=== PATIENT | female | born 1935 | race African-American/Black ===

== ENCOUNTER 2016-06-04 17:03 | Inpatient (IN) ==
[2016-06-04] MEDS ORDERED: ONDANSETRON 4 MG/2 ML VIAL IV STA (18:16)
[2016-06-04] MEDS ORDERED: SODIUM CHLORIDE 0.9% 500 ML IV STA (18:16)
[2016-06-04] MEDS ORDERED: PANTOPRAZOLE 40 MG VIAL IV STA (18:16)
--- NOTE | 2016-06-04 18:16 | Emergency Department Note ---
Brian Dixon Brittany, am scribing for, and in the presence of, Yao Payne MD 18:15. Kerry Dixon Charles R, MD, personally performed the services described in this documentation, ascribed by Lela Torres in my presence, and it is both accurate and complete 816 . Arrival - Arrival Chief Complaint: GI Bleed/Rectal Stated Complaint: bloody stool,weakness in knees ED Nursing Triage Note: Pt c/o bright red bloody diarrhea with weakness. Denies abd pain. Onset today. Mode of Arrival: Ambulatory Limitations: No Limitations Source: Patient, Family, RN Notes Reviewed Time Seen by Provider: 06/04/16 17:58 - History of Present Illness HPI Narrative: Patient is a 80 y/o black female presenting to the ED accompanied by daughter with c/o hematochezia with an onset of 4 hours [employer]. 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 Patient's daughter reports that patient called her at 1400 today informing her that she'd had some diarrhea with bright red blood. She then notes that patient called her again at 1600 about a second bowel movement like this as well. Daughter reports that after their arrival here in the ED patient had another two bloody diarrhea movements. She notes that patient has also had an increase in weakness. Patient is on Ecotrin ASA. Patient denies having any abdominal pain, nausea, or vomiting with this. She is a patient of Dr. Chiquis Domínguez. No other complaint/pain in the ED at this time. Onset (ago): hour(s) (4) Consistency: constant Allergies/Adverse Reactions: Allergies Allergy/AdvReac Type Severity Reaction Status Date / Time No Known Allergies Allergy Verified 04/11/15 07:14 Home Medications: Home Medications Medication Instructions Recorded Confirmed Type Allopurinol 300 mg PO DAILY 04/10/15 06/04/16 History Amlodipine Besylate 5 mg PO DAILY 04/10/15 06/04/16 History Fenofibrate [Tricor] 145 mg PO DAILY 04/10/15 06/04/16 History Metoprolol Succinate 100 mg PO DAILY 06/04/16 06/04/16 History Pravastatin [Pravachol] 20 mg PO BEDTIME 06/04/16 06/04/16 History Review of System - Review of System 12 point system: reviewed and no additional remarkable complaints except as stated - Review of System Gastrointestinal: Present: as per HPI, diarrhea, hematochezia. Absent: abdominal pain, nausea, vomiting Medical,Surgical,& Family Hx - Medical History Cardio: History of: Hypertension Neurology: History of: TIA HEENT: History of: Eye Problem (Cataract), Dental Problems (Dentures) Endocrine: History of: Dyslipidemia Rheumatology: History of;: Gout Respiratory: Comment Only: Respiratory Problems (Flu Vac this season/Pnem Vac current) Hematology: No history of: Blood Transfusion Reaction (No Transfusions) Other: No history of: Anesthesia Reactions, Cancer - Surgical History HEENT Surgeries: Surgical HX of: Eye Surgery (04/11/15 Sched for Cataract Lt) Abdominal Surgeries: Surgical HX of: Abdominal Surgery Reproductive Surgeries: Surgical HX of;: Hysterectomy - Social History Smoking Status: Never smoker Exam Vital Signs: Vital Signs Temperature 96.8 F L 06/04/16 17:32 Pulse Rate 53 L 06/04/16 17:32 Respiratory Rate 16 06/04/16 17:32 Blood Pressure 126/68 06/04/16 17:32 O2 Sat by Pulse Oximetry 99 06/04/16 17:21 - General General appearance: alert, in no apparent distress - Head Head exam: Present: atraumatic, normocephalic, normal inspection - Eye Eye exam: Present: normal appearance, PERRL, EOMI - ENT ENT exam: Present: normal exam, normal oropharynx - Neck Neck exam: Present: normal inspection, full ROM, trachea midline - Chest Chest inspection: Present: normal inspection, symmetric chest wall rise - Respiratory Respiratory exam: Present: normal lung sounds bilaterally. Absent: rales, rhonchi, wheezes - Cardiovascular Cardiovascular exam: Present: regular rate, normal rhythm, normal heart sounds. Absent: murmur, rubs, gallop - Abdominal Exam Abdominal exam: Present: soft, normal bowel sounds. Absent: distention, tenderness - Rectal Exam Rectal exam: Present: heme (+) stool (grossly heme pos) - Extremities Exam Extremities exam: Present: normal inspection - Back Exam Back exam: Present: normal inspection - Neurological Exam Neurological exam: Present: alert, oriented X3, CN II-XII intact. Absent: motor sensory deficit - Psychiatric Psychiatric exam: Present: normal affect - Skin Skin exam: Present: warm, dry Course - Consultations Consultation #1: Dr. Bon Torres will admit for Dr. Chiquis Domínguez. She has a mass in her left upper quadrant we will do a CT scan in the morning with IV and oral contrast and consult GI Time: 19:08 Results - Labs CBC & BMP: 06/04/16 18:02 06/04/16 18:02 Lab Results: I have reviewed the patients labs Labs: Laboratory Tests 06/04/16 18:02 WBC 6.6 RBC 3.93 Hgb 11.0 L Hct 33.7 L MCV 85.8 L MCH 28 MCHC 32.6 RDW 15.8 Plt Count 253 MPV 11.9 Neut % (Auto) 65.7 Lymph % (Auto) 22.2 [place] % (Auto) 8.3 Eos % (Auto) 2.4 Baso % (Auto) 0.6 Neut # (Auto) 4.3 Lymph # (Auto) 1.5 [place] # (Auto) 0.6 Eos # (Auto) 0.2 Baso # (Auto) 0.0 Immature Gran % 0.8 Nucleated RBC % 0.0 Immature Gran # 0.05 Nucleated RBCs # 0.00 Laboratory Tests 06/04/16 06/04/16 18:02 18:02 INR 1.1 PT Patient/Control Mix 11.8 Sodium 142 Potassium 4.0 Chloride 109 H Carbon Dioxide 23 Anion Gap 14.0 BUN 34 H Creatinine 1.40 H GFR Calculation 46 BUN/Creatinine Ratio 24.00 H Glucose 107 H Calculated Osmolality 290.1 Calcium 8.4 L Magnesium 1.9 Total Bilirubin < 0.39 AST 16 ALT 17 Alkaline Phosphatase 60 Troponin I < 0.015 Total Protein 5.7 L Albumin 3.2 L Globulin 2.5 Albumin/Globulin Ratio 1.2 - Diagnostic Findings Procedure: Abdominal x-ray: report reviewed by me (Mass lesion involving the left upper abdomen measuring up to 12.6 cm.), Chest x-ray: report reviewed by me (1. Cardiomegaly without decompensation. 2. ASVD.) Disposition Clinical Impression: Lower gastrointestinal hemorrhage, Abdominal mass Case discussed with: patient, patient's family Disposition: Still a Patient Condition: Stable Time of Disposition: 19:08
[2016-06-04] MEDS ORDERED: PANTOPRAZOLE 40 MG VIAL IV ONE (18:20)
[2016-06-04] MEDS ORDERED: ONDANSETRON 4 MG/2 ML VIAL ONE (18:20)
[2016-06-04 18:31] LABS: Basophils % 0.6 % (0.0-0.8); Eosinophils # 0.2 10*3/uL (0.0-0.87); Eosinophils % 2.4 % (0.00-10.9); Hematocrit 33.7 VOL% (35.7-47.0); Immature Granulocytes % 0.8 %; Immature Granulocytes Absolute 0.05 #; Lymphocytes # 1.5 10*3/uL (1.4-4.0); Lymphocytes % 22.2 % (21.3-54.2); Mean Corpuscular HGB Conc 32.6 GM/DL (32-36); Mean Corpuscular Hemoglobin 28 PG (27-34); Mean Corpuscular Volume 85.8 FL (87-102); Mean Platelet Volume 11.9 FL (9.6-12.0); Monocytes # 0.6 10*3/uL (0.11-0.8); Monocytes % 8.3 % (1.7-12.7); Neutrophils # 4.3 10*3/uL (1.4-7.4); Neutrophils % 65.7 % (38.7-73.9); Platelet Count 253 T/CUMM (130-400); Red Blood Count 3.93 MC/CUMM (3.8-5.5); Red Cell Distribution Width 15.8 % (9.3-17.3); White Blood Count 6.6 T/CUMM (4-12)
[2016-06-04 18:38] LABS: INR 1.1; PT Patient Result 11.8 SECS
[2016-06-04 18:52] LABS: Alanine Aminotransferase 17 U/L (13-56); Albumin 3.2 G/DL (3.4-5.0); Alkaline Phosphatase 60 U/L (45-117); Aspartate Amino Transferase 16 U/L (0-37); Bilirubin,Total < 0.39 MG/DL (0.2-1.0); Blood Urea Nitrogen 34 MG/DL (7-18); Calcium 8.4 MG/DL (8.5-10.1); Glucose 107 MG/DL (74-106); Magnesium 1.9 MG/DL (1.8-2.4); Osmolality,Calculated 290.1 MOS/KG (273-304); Sodium 142 MMOL/L (136-145); Total Protein 5.7 G/DL (6.4-8.3); Troponin I Only < 0.015 NG/ML (0.00-0.045)
--- NOTE | 2016-06-04 18:58 | XRay Report ---
Exam: XR chest 1V, Date: 06/04/2016 6:16 PM Indication: Shortness of breath Comparison: None Technical: Expiratory PA Findings: Cardiomegaly is present. There is mild elevation right hemidiaphragm. ASVD is present. External cardiac leads are present. No obvious consolidating infiltrate or effusion with a few calcified granuloma change in the perihilar regions Impression: 1. Cardiomegaly without decompensation. 2. ASVD. Exam: , XR abdomen 2V Date: 06/04/2016 6:16 PM Indication: Abdominal pain Comparison: None Findings: The liver shadow is unremarkable. The spleen is not well seen. The renal shadows are obscured. Nonspecific bowel gas pattern in the right colon. There is a 12.6 x 10.4 cm ovoid density in the left abdomen. Multiple phleboliths present true pelvis. Impression: 1. Mass lesion involving the left upper abdomen measuring up to [address] imaging or ultrasound imaging recommended for further evaluation PROCEDURE INTERPRETED AT [facility] DEPARTMENT OF RADIOLOGY Final Report Signed by: Dr. Dieudonne Dockery
[2016-06-04] MEDS ORDERED: LACTULOSE 20 GM/30 ML UDCUP PO PRN (21:12)
[2016-06-04] MEDS ORDERED: MORPHINE 2 MG/1 ML SYRINGE IV PRN (21:12)
[2016-06-04] MEDS ORDERED: ONDANSETRON 4 MG/2 ML VIAL IV PRN (21:12)
[2016-06-04] MEDS ORDERED: ACETAMINOPHEN 325 MG TABLET PO PRN (21:12)
[2016-06-04 21:52] LABS: Basophils % 0.4 % (0.0-0.8); Eosinophils # 0.1 10*3/uL (0.0-0.87); Eosinophils % 1.3 % (0.00-10.9); Hematocrit 33.2 VOL% (35.7-47.0); Hemoglobin 10.9 GM/DL (12.0-16.0); Immature Granulocytes Absolute 0.08 #; Lymphocytes # 1.5 10*3/uL (1.4-4.0); Lymphocytes % 19.5 % (21.3-54.2); Mean Corpuscular HGB Conc 32.8 GM/DL (32-36); Mean Corpuscular Hemoglobin 28 PG (27-34); Mean Corpuscular Volume 85.8 FL (87-102); Mean Platelet Volume 11.3 FL (9.6-12.0); Monocytes # 0.5 10*3/uL (0.11-0.8); Monocytes % 6.5 % (1.7-12.7); Neutrophils # 5.6 10*3/uL (1.4-7.4); Neutrophils % 71.3 % (38.7-73.9); Platelet Count 240 T/CUMM (130-400); Red Blood Count 3.87 MC/CUMM (3.8-5.5); Red Cell Distribution Width 15.9 % (9.3-17.3); White Blood Count 7.8 T/CUMM (4-12)
[2016-06-04] MEDS: DOCUSATE SODIUM 100 MG CAPSULE PO SCH (23:06)
[2016-06-04] MEDS: SODIUM CHLORIDE 0.9% 1,000 ML IV SCH (23:06)
[2016-06-04] MEDS: PRAVASTATIN 20 MG TABLET PO SCH (23:06)
[2016-06-05 07:00] LABS: Albumin 2.8 G/DL (3.4-5.0); Bilirubin,Total 0.4 MG/DL (0.2-1.0); Magnesium 2.1 MG/DL (1.8-2.4); Osmolality,Calculated 290.8 MOS/KG (273-304); Potassium 4.2 MMOL/L (3.5-5.1); Total Protein 5.3 G/DL (6.4-8.3); VLDL CHOLESTEROL 13.2 MG/DL
--- NOTE | 2016-06-05 07:03 | CT Report ---
CT of the abdomen and pelvis with intravenous and oral contrast. Indication: Abdominal mass. Axial images were obtained with sagittal and coronal reconstructions. No previous study. 100 cc Omni 350. The heart is enlarged. There is no pericardial effusion. There is mild scarring within the lung bases. There is a 3.7 cm hiatal hernia. Within the left lobe of the liver, there is an 18 mm cyst. There is a gallstone visible. There is no biliary ductal dilatation. The spleen is normal in size. The spleen contains a granuloma. There is no adrenal enlargement. The kidneys contain numerous cysts of varying sizes. The largest cyst on the right is at the upper pole, and measures 5.7 cm. The largest cyst on the left kidney is at the mid pole, and measures 11.5 cm. These cysts have simple features. No hydronephrosis. No nephrolithiasis. They do contribute significant mass effect. No pancreatic abnormality is seen. There is mild plaque present within the distal abdominal aorta, and extending into the iliac systems. There is no free air or free fluid present within the peritoneal cavity. The gastric contour is normal. The loops of small intestine are not dilated. There is a ventral abdominal wall hernia above the umbilicus which contains nonstrangulated loops of small intestine. Contrast extends beyond this level. The mouth of the hernia is approximately 3.3 cm. The cecum is redundant and flipped. The appendix is not discretely seen. The colon is mildly redundant. Contrast material reaches the rectum. No adenopathy is seen. The pelvic organs have been removed. Mild degenerative changes are present within the spinal column. Impression: 1. Cardiomegaly. 2. Hiatal hernia. 3. Large bilateral renal cysts, causing significant mass effect. 4. Small liver cyst. 5. Ventral abdominal wall hernia, containing small intestine. 6. Cholelithiasis. The CT exam was performed using one or more of the following dose reduction techniques: Automated exposure control, adjustment of the mA and/or kV according to patient size, or use of iterative reconstruction technique. PROCEDURE INTERPRETED AT [facility] DEPARTMENT OF RADIOLOGY Final Report Signed by: Dr. Elle Carvajal
--- NOTE | 2016-06-05 07:26 | Gastrointestinal Consult Note ---
Assessment and Plan (1) Lower gastrointestinal hemorrhage Status: Acute Assessment and plan: This patient has a likely diverticular bleed although ischemic colitis and bleeding from colon cancer not completely eliminated. Patient did have a colonoscopy done approximately 2 years ago but we do not have data as far as how far the endoscopist was able to get and what the findings were. Patient did not have any cramping associated with the blood loss and so ischemic colitis seems less likely as does infectious colitis as this was abrupt onset. Hemorrhoidal bleeding is in the differential as well especially given the low level of blood loss noted with hematocrit only dropping to 33%. We will proceed with colonoscopy tomorrow to determine the source of the blood loss. Risks of the procedure include but are not limited to: Bleeding, infection, perforation, cardiac and pulmonary compromise. Further recommendations post colonoscopy to occur tomorrow. MiraLAX prep tonight. Current Visit: Yes (2) Acute posthemorrhagic anemia Status: Acute Assessment and plan: Again, this patient's hematocrit is only dropped down to 33%. I suspect it is equilibrating at this point. She does take an aspirin a day and so a brisk upper GI bleed is in the differential however given her initial stools seen as bright red this seems much less likely. We will look through the patient's colon and into the terminal ileum which should determine whether or not there is blood loss he seen from higher in the GI tract. Clear liquid diet today in preparation for the colonoscopy tomorrow, we will continue to follow the patient 's hematocrit over time. Current Visit: Yes (3) Abnormal CT scan, gastrointestinal tract Status: Acute Assessment and plan: This patient has multiple liver and kidney cysts which likely are having minimal physical impact on her. She does have at least an asymptomatic gallstone seen on CT scan--these are commonly seen in 10% of individuals. No need to proceed with cholecystectomy until she becomes symptomatic. I am not sure at what level renal cysts need to be fenestrated/removed, hers are asymptomatic even at 11.5 cm with "mass-effect". Current Visit: Yes History of Present Illness Chief complaint: New-onset hematochezia History of present illness: Ms. Rodney is a 80 year old female who has a history of bright red blood per rectum in a patient who has had multiple CVAs which started yesterday afternoon at about 2:30 in the afternoon. Started initially with 2 bloody bowel movements but no particularly abdominal cramping, nausea, vomiting or other GI complaint. Over the evening the patient states that she has been to the bathroom another 5 times each of these becoming progressively darker and more concentrated. On physical exam today however at this is definitely bright maroon mucoid blood being seen per rectum. Patient has no abdominal pain whatsoever and is not nauseous or vomiting. She does take an Ecotrin each day for prior history of CVA/TIAs as per Dr. Morgan and neurologist over at [facility]. Patient states that she had received a colonoscopy approximately 2 years ago at [facility] making the likelihood of diverticular bleeding higher. The patient does have a CT scan which shows sizable cysts on the kidneys particularly 11.5 cm cyst from the left midpole, and a 5. centimeters cyst on the right upper pole. There is a liver cyst noted as well but only 18 mm in size, a gallstone is seen as well as an umbilical hernia which has some non-strangulated bowel within it. Patient states this is been a chronic condition for many years. She has no nausea or vomiting and her appetite is okay. Home Medications Medication Instructions Recorded Confirmed Type Allopurinol 300 mg PO DAILY 04/10/15 06/04/16 History Amlodipine Besylate 5 mg PO DAILY 04/10/15 06/04/16 History Fenofibrate [Tricor] 145 mg PO DAILY 04/10/15 06/04/16 History Metoprolol Succinate 100 mg PO DAILY 06/04/16 06/04/16 History Pravastatin [Pravachol] 20 mg PO BEDTIME 06/04/16 06/04/16 History Aspirin [Ecotrin] 325 mg PO DAILY 06/05/16 06/05/16 History Allergies Allergy/AdvReac Type Severity Reaction Status Date / Time No Known Allergies Allergy Verified 04/11/15 07:14 Medical,Surgical,& Family Hx - Medical History Cardio: History of: Hypertension Neurology: History of: TIA (several) HEENT: History of: Eye Problem (Cataract), Dental Problems (Dentures) Endocrine: History of: Dyslipidemia Rheumatology: History of;: Gout Respiratory: Comment Only: Respiratory Problems (Flu Vac this season/Pnem Vac current) Hematology: No history of: Blood Transfusion Reaction (No Transfusions) Other: No history of: Anesthesia Reactions, Cancer - Surgical History HEENT Surgeries: Surgical HX of: Eye Surgery (04/11/15 Sched for Cataract Lt) Abdominal Surgeries: Surgical HX of: Abdominal Surgery (blockage removed) Reproductive Surgeries: Surgical HX of;: Hysterectomy (1982) - Social History Smoking Status: Never smoker Type of Drug Use: None ROS unobtainable: due to dementia Exam - Constitutional Vitals: Period Temp Pulse Resp BP Sys/Mosher Pulse Ox Last 24 Hr 97.8 F-97.9 F 46-54 16-20 118-146/61-71 Exam: Constitutional: Well-developed, well-nourished, alert, and in no acute distress Head and face: Head: Normocephalic atraumatic Eyes: Conjunctiva without injection, no gross scleral icterus, pupils equal and round bilaterally Ears: Intact to conversation in both ears Nose: External appearance is normal, nares patent Mouth: Oral mucous membranes moist without erythema dentition noted to be without erosion Neck: Normal appearance, no masses or tenderness, trachea midline Thyroid: Gland midline and appropriate size for age Respiratory: Normal respiratory effort, clear to auscultation without wheezes, rhonchi or rales Cardiovascular: Regular rate and rhythm, normal S1, S2, the exam is without rubs, murmurs or gallops. Gastrointestinal: Nontender to palpation, normal active bowel sounds, tone normal without rigidity or guarding, no masses present except for a 3 cm supraumbilical hernia--no bowel entrapment noted, no hepatomegaly, no spleen tip felt. Rectal exam shows good tone no external fissures or fistulas stool was present red mucoid and grossly guaiac positive. Lymphatic: Neck without adenopathy, axilla without lymphadenopathy present Musculoskeletal: Right and left lower extremities without evidence of edema Skin and subcutaneous tissue: No rashes or ulcerations noted, normal skin turgor, digits and nails without clubbing/cyanosis/deformities. Neurologic: The patient is grossly oriented to person and place. Motor and sensory function appear grossly intact. Psychiatric: No hallucinations or delusions are present, does not appear depressed Results - Labs CBC & BMP: 06/04/16 21:40 06/05/16 05:25
--- NOTE | 2016-06-05 08:49 | XRay Report ---
2 view chest. Indication: Shortness of breath. Comparison: June 04, 2016. The heart is mildly enlarged with left ventricular hypertrophy. The pulmonary vasculature is normal. The lung wick are clear. Contrast material is seen within normal caliber bowel. Degenerative changes are noted within the spinal column. Impression: Mild cardiomegaly. No acute abnormality. PROCEDURE INTERPRETED AT [facility] DEPARTMENT OF RADIOLOGY Final Report Signed by: Dr. Elle Carvajal
[2016-06-05] MEDS: ALLOPURINOL 300 MG TABLET PO SCH (09:35)
[2016-06-05] MEDS: METOPROLOL SUCCINATE XL 100 MG TABLET PO SCH (09:35)
[2016-06-05] MEDS: amLODIPine 5 MG TABLET PO SCH (09:35)
[2016-06-05] MEDS: DOCUSATE SODIUM 100 MG CAPSULE PO SCH ×3 (09:35→21:50)
[2016-06-05] MEDS: FENOFIBRATE 145 MG TABLET PO SCH (09:35)
[2016-06-05] MEDS: PANTOPRAZOLE 40 MG VIAL IV SCH (09:46)
[2016-06-05] MEDS: SODIUM CHLORIDE 0.9% 1,000 ML IV SCH ×2 (09:52→23:53)
[2016-06-05] MEDS: BISACODYL 5 MG TABLET PO SCH ×2 (10:09→18:12)
[2016-06-05] MEDS ORDERED: POLYETHYLENE GLYCOL POWDER 255 GM BOTTLE PO ONE ×2 (16:00→19:34)
--- NOTE | 2016-06-05 18:40 | Internal Med History&Physical ---
Assessment and Plan (1) Renal cysts, acquired, bilateral Problem details: mass like effect Status: Chronic Current Visit: Yes (2) Lower gastrointestinal hemorrhage Status: Acute Current Visit: Yes (3) Hypertension Status: Chronic Current Visit: Yes Qualifiers: Hypertension type: essential hypertension Qualified Code(s): I10 - Essential (primary) hypertension History of Present Illness Chief complaint: GI bleed History of present illness: Ms. Rodney is a 80 year old female with history of stroke/TIA, HTN, chronic renal insufficiency, OA, dyslipidemia, gout, diverticulosis/diverticulitis with episode years ago, who presented to ER with acute GI bleed. She denies pain. Dr. Urbina has been consulted to further investigate. Also, CT revealed an incidental finding of large renal cysts with mass like effect. Consulting Dr. Ko Smith to evaluate severity and whether she needs surgical therapy. Discussed with daughter. Home Medications Medication Instructions Recorded Confirmed Type Allopurinol 300 mg PO DAILY 04/10/15 06/04/16 History Amlodipine Besylate 5 mg PO DAILY 04/10/15 06/04/16 History Fenofibrate [Tricor] 145 mg PO DAILY 04/10/15 06/04/16 History Metoprolol Succinate 100 mg PO DAILY 06/04/16 06/04/16 History Pravastatin [Pravachol] 20 mg PO BEDTIME 06/04/16 06/04/16 History Aspirin [Ecotrin] 325 mg PO DAILY 06/05/16 06/05/16 History Allergies Allergy/AdvReac Type Severity Reaction Status Date / Time No Known Allergies Allergy Verified 04/11/15 07:14 Medical,Surgical,& Family Hx - Medical History Cardio: History of: Hypertension Neurology: History of: Dementia, TIA (several) HEENT: History of: Eye Problem (Cataract), Dental Problems (Dentures) Endocrine: History of: Dyslipidemia Rheumatology: History of;: Gout Respiratory: Comment Only: Respiratory Problems (Flu Vac this season/Pnem Vac current) Genitourinary: History of: Problems (bilateral renal cysts) Hematology: No history of: Blood Transfusion Reaction (No Transfusions) Other: No history of: Anesthesia Reactions, Cancer - Surgical History HEENT Surgeries: Surgical HX of: Eye Surgery (04/11/15 Sched for Cataract Lt) Abdominal Surgeries: Surgical HX of: Abdominal Surgery (blockage removed) Reproductive Surgeries: Surgical HX of;: Hysterectomy (1982) - Family History Family History: Reports;: Family Hypertension - Social History Smoking Status: Never smoker Type of Drug Use: None Marital Status: Lives With:: Children Functional capacity: uses cane/walker - Gastrointestinal Gastrointestinal: Present: hematochezia - Neurological Neurological: Present: memory loss Exam - Constitutional Vitals: Period Temp Pulse Resp BP Sys/Mosher Pulse Ox Last 24 Hr 97.5 F-98 F 46-54 16-20 118-155/61-71 97-99 General appearance: no acute distress - Head Head exam: Present: normocephalic - Eye Eye exam: Present: EOMI - Respiratory Respiratory exam: Present: clear to auscultation bilaterally - Cardiovascular Cardiovascular exam: Present: regular rate and rhythm - GI/Abdominal GI/Abdominal exam: Present: soft. Absent: tenderness - Extremities Exam Extremities exam: Absent: edema - Neurological Exam Neurological exam: Present: alert - Psychiatric Psychiatric exam: Present: normal mood - Skin Skin exam: Present: warm, dry Results - Labs CBC & BMP: 06/04/16 21:40 06/05/16 05:25 - EKG EKG shows: sinus rhythm - Diagnostic Findings Procedure: Chest x-ray: report reviewed by me, image reviewed by me (clear lung wick), CT Abdomen and Pelvis: report reviewed by me (large renal cysts)
[2016-06-05] MEDS ORDERED: PROMETHAZINE INJ 25 MG in SODIUM CHLORIDE 0.9% 50 ML IV PRN (20:00)
[2016-06-05] MEDS ORDERED: MAGNESIUM CITRATE 300 ML BOTTLE PO ONE (21:00)
[2016-06-05] MEDS: PRAVASTATIN 20 MG TABLET PO SCH (21:50)
--- NOTE | 2016-06-06 06:55 | Gastrointestinal Progress Note ---
Assessment and Plan (1) Lower gastrointestinal hemorrhage Status: Acute Assessment and plan: This patient has a likely diverticular bleed although ischemic colitis and bleeding from colon cancer not completely eliminated. Patient did have a colonoscopy done approximately 2 years ago but we do not have data as far as how far the endoscopist was able to get and what the findings were. Patient did not have any cramping associated with the blood loss and so ischemic colitis seems less likely as does infectious colitis as this was abrupt onset. Hemorrhoidal bleeding is in the differential as well especially given the low level of blood loss noted with hematocrit only dropping to 33%. We will proceed with colonoscopy tomorrow to determine the source of the blood loss. Risks of the procedure include but are not limited to: Bleeding, infection, perforation, cardiac and pulmonary compromise. Further recommendations post colonoscopy to occur tomorrow. MiraLAX prep tonight. 06/06/16--I was called by Dr. Domínguez last night to inform you the patient was throwing up her prep. Despite writing for IV Phenergan and the patient having Zofran and being offered NG tube through the night on multiple occasions the patient did not take any further prep aside from a few sips. Understandably, she is not clean this morning. I have canceled the colonoscopy. I am attempting to get the records of the previous colonoscopy from [facility] and we will obtain a tagged red blood cell scan this morning. If actively bleeding the tagged red blood cell scan will give us an idea of where the blood is coming from, if not actively bleeding the tagged red blood cell scan should indicate that the patient's bleeding has ceased at which point she could probably be fed provided she is not going to try and take the prep. I had the distinct impression the information we get from this test is going to be the only information we get from this hospital stay. We need to establish that her hematocrit has not dropped further --once this information is available, if she has stopped bleeding she could likely be discharged. Current Visit: Yes (2) Acute posthemorrhagic anemia Status: Acute Assessment and plan: Again, this patient's hematocrit is only dropped down to 33%. I suspect it is equilibrating at this point. She does take an aspirin a day and so a brisk upper GI bleed is in the differential however given her initial stools seen as bright red this seems much less likely. We will look through the patient's colon and into the terminal ileum which should determine whether or not there is blood loss he seen from higher in the GI tract. Clear liquid diet today in preparation for the colonoscopy tomorrow, we will continue to follow the patient 's hematocrit over time. 06/06/16--No further blood counts had been drawn yesterday, I have written for these to be done every 12 hours for the remainder of her hospital stay. Note that the patient's daughter is trying to get the patient out by Friday in order to attend a "surprise birthday alliance party". If the tagged red blood cell scan is positive for bleeding we may have to press harder to get the NG tube and get the prep down. Current Visit: Yes (3) Abnormal CT scan, gastrointestinal tract Status: Acute Assessment and plan: This patient has multiple liver and kidney cysts which likely are having minimal physical impact on her. She does have at least an asymptomatic gallstone seen on CT scan--these are commonly seen in 10% of individuals. No need to proceed with cholecystectomy until she becomes symptomatic. I am not sure at what level renal cysts need to be fenestrated/removed, hers are asymptomatic even at 11.5 cm with "mass-effect". 06/06/16--see above. Current Visit: Yes Gastroenterology - PN: Subj Interval history: Unfortunately despite the Phenergan and Zofran given yesterday the patient was not able to tolerate anything but minimal sips of the prep. We will try and get a tagged red blood cell scan to see if we can localize the area of bleeding and see whether this is continuing. Nuclear medicine is here at the bedside to collect blood from the patient now for radio-tagging and reinjection. Exam (Progress Note) - Constitutional Vitals: Period Temp Pulse Resp BP Sys/Mosher Pulse Ox Last 24 Hr 97.5 F-98.6 F 51-68 18-20 119-156/59-83 97-100 General appearance: no acute distress - Eye Eye exam: Present: EOMI - Cardiovascular Cardiovascular exam: Present: regular rate and rhythm - GI/Abdominal GI/Abdominal exam: Present: normal bowel sounds, soft. Absent: distended, tenderness - Neurological Exam Neurological exam: Present: alert, oriented X3, CN II-XII intact. Absent: motor sensory deficit - Psychiatric Psychiatric exam: Present: normal affect, normal mood, other (Patient seems disgruntled) - Skin Skin exam: Present: warm Results - Labs CBC & BMP: 06/04/16 21:40 06/05/16 05:25
[2016-06-06] MEDS: BISACODYL 5 MG TABLET PO SCH ×2 (09:01→23:35)
--- NOTE | 2016-06-06 09:18 | Nuclear Medicine Report ---
History is abdominal mass and a GI bleeding, vomiting 20 mCi of technetium 99m TYP utilized. Imaging performed through 1 hour There is patchy inhomogeneous mild activity in the abdomen bilaterally which is not significantly changed configuration or intensity throughout the procedure and is felt to be related to renal activity distorted by multiple large renal cysts as seen on prior CT. No progressively accumulating areas of the tracer activity seen to suggest a active GI bleeding site Impression: Negative GI bleeding scan PROCEDURE INTERPRETED AT [facility] DEPARTMENT OF RADIOLOGY Final Report Signed by: Dr. Chika Carvajal
[2016-06-06 09:55] LABS: Hematocrit 26.5 VOL% (35.7-47.0)
[2016-06-06 10:05] LABS: Hemoglobin 8.5 GM/DL (12.0-16.0)
[2016-06-06] MEDS: PANTOPRAZOLE 40 MG VIAL IV SCH (11:18)
[2016-06-06] MEDS: ALLOPURINOL 300 MG TABLET PO SCH (13:26)
[2016-06-06] MEDS: amLODIPine 5 MG TABLET PO SCH (13:27)
[2016-06-06] MEDS: FENOFIBRATE 145 MG TABLET PO SCH (13:27)
[2016-06-06] MEDS: METOPROLOL SUCCINATE XL 100 MG TABLET PO SCH (13:28)
[2016-06-06] MEDS: SODIUM CHLORIDE 0.9% 1,000 ML IV SCH ×2 (14:11→14:17)
[2016-06-06] MEDS ORDERED: POLYETHYLENE GLYCOL 3350/ELECTROLYTES 4,000 ML BOTTLE NG ONE (18:00)
--- NOTE | 2016-06-06 18:40 | Urology Consultation ---
Assessment and Plan - Time spent with patient Time spent with patient: Greater than 30 minutes (1) Polycystic kidney disease Status: Acute Assessment and plan: Her creatinine for her age and 1.4 is not uncommon. She was unaware that she had cysts in her kidneys. The CT scan was reviewed and indeed she has bilateral multiple benign simple cysts. A few of them are fair sized. They are not causing any hydronephrosis but there are occupying the potential spaces around the kidney. I recommend no intervention. She has not had any symptoms for this. At her age I do not feel that they will cause any significant problems for her. If we start intervening we can cause some infection and potentially loss of significant renal function that she needs. I therefore do not recommend any intervention for this. Current Visit: Yes History of Present Illness - Data of Consult Patient: new to practice Consult date: 06/06/16 Requesting Physician: Chiquis Domínguez - Consult Narrative Reason for consult: Polycystic kidneys History of present illness: Ms. Rodney is a 80 year old female who is admitted with a lower GI bleed. In this workup she had a CT scan that showed bilateral multiple cysts in the kidney couple of them a fair size. Her creatinine is 1.4. I was consult today is to give my opinion what to do about these if any. She denies any flank pain. She denies any hematuria gross or otherwise. She was unaware that she had cysts in her kidneys. She has never had any real problems. They are working up the lower GI bleed and at this point do not have an answer. There is no family history of polycystic kidney disease. CC: Chiquis Domínguez, DO - Home Medications and Allergies Home Medications: Home Medications Medication Instructions Recorded Confirmed Type Allopurinol 300 mg PO DAILY 04/10/15 06/04/16 History Amlodipine Besylate 5 mg PO DAILY 04/10/15 06/04/16 History Fenofibrate [Tricor] 145 mg PO DAILY 04/10/15 06/04/16 History Metoprolol Succinate 100 mg PO DAILY 06/04/16 06/04/16 History Pravastatin [Pravachol] 20 mg PO BEDTIME 06/04/16 06/04/16 History Aspirin [Ecotrin] 325 mg PO DAILY 06/05/16 06/05/16 History Allergies/Adverse Reactions: Allergies Allergy/AdvReac Type Severity Reaction Status Date / Time No Known Allergies Allergy Verified 02/09/16 07:14 12 point system: reviewed and no additional remarkable complaints except as stated - Genitourinary Genitourinary: Absent: difficulty urinating, dysuria, flank pain, hematuria, urinary frequency, urinary hesitancy Exam - Constitutional Vitals: Period Temp Pulse Resp BP Sys/Mosher Pulse Ox Last 24 Hr 97.3 F-98.6 F 54-79 16-20 130-156/59-87 97-100 - GI/Abdominal GI/Abdominal exam: Present: soft, other (No flank tenderness or mass. No CVA tenderness on either side). Absent: mass, tenderness, rebound Results - Labs CBC & BMP: 06/06/16 09:28 06/05/16 05:25 Lab Results: I have reviewed the past 24 hour labs - Diagnostic Findings Procedure: CT Abdomen and Pelvis: report reviewed by me
[2016-06-06 19:14] LABS: Hematocrit 25.8 VOL% (35.7-47.0); Hemoglobin 8.4 GM/DL (12.0-16.0)
--- NOTE | 2016-06-06 19:34 | Internal Med Progress Note ---
Assessment and Plan (1) Renal cysts, acquired, bilateral Problem details: mass like effect Status: Chronic Current Visit: Yes (2) Lower gastrointestinal hemorrhage Status: Acute Current Visit: Yes (3) Hypertension Status: Chronic Current Visit: Yes Qualifiers: Hypertension type: essential hypertension Qualified Code(s): I10 - Essential (primary) hypertension (4) Polycystic kidney disease Status: Chronic Current Visit: Yes (5) Blood loss anemia Status: Acute Current Visit: Yes Internal Medicine - PN: Subj Interval history: Ms. Rodney is a 80 year old female with history of stroke/TIA, HTN, chronic renal insufficiency, OA, dyslipidemia, gout, diverticulosis/diverticulitis with episode years ago, who presented to ER with acute GI bleed. She denies pain. Dr. Urbina has been consulted to further investigate. Also, CT revealed an incidental finding of large renal cysts with mass like effect. Consulting Dr. Ko Smith to evaluate severity and whether she needs surgical therapy. Discussed with daughter. Today, , discussed with Dr. Ko Smith that the renal cysts are simple cysts, and observation is recommended rather than procedure. She does not have hydronephrosis from mass effect. Exam (Progress Note) - Constitutional Vitals: Period Temp Pulse Resp BP Sys/Mosher Pulse Ox Last 24 Hr 97.3 F-98.6 F 55-79 16-20 130-154/59-87 97-100 Exam: General appearance: no acute distress - Respiratory Respiratory exam: Present: clear to auscultation bilaterally - Cardiovascular Cardiovascular exam: Present: regular rate and rhythm - GI/Abdominal GI/Abdominal exam: Present: soft. Absent: tenderness - Extremities Exam Extremities exam: Absent: edema - Neurological Exam Neurological exam: Present: alert - Psychiatric Psychiatric exam: Present: flat affect - Skin Skin exam: Present: warm, dry Vitals reviewed. Results - Labs CBC & BMP: 06/06/16 18:46 06/05/16 05:25 - EKG EKG shows: sinus rhythm (monitor strips) - Diagnostic Findings Procedure: Chest x-ray: report reviewed by me, image reviewed by me
[2016-06-06] MEDS ORDERED: MAGNESIUM CITRATE 300 ML BOTTLE PO ONE (21:00)
[2016-06-06] MEDS: PRAVASTATIN 20 MG TABLET PO SCH (21:23)
[2016-06-06] MEDS ORDERED: SODIUM CHLORIDE 0.9% 250 ML IV PRN (22:53)
[2016-06-07] MEDS: SODIUM CHLORIDE 0.9% 1,000 ML IV SCH ×2 (01:07→15:03)
[2016-06-07] MEDS: BISACODYL 5 MG TABLET PO SCH ×3 (01:18→17:11)
[2016-06-07] MEDS ORDERED: PROPOFOL 200 MG/20 ML VIAL IV ONE (06:55)
[2016-06-07] MEDS ORDERED: LIDOCAINE 1% 5 ML VIAL ONE (06:55)
--- NOTE | 2016-06-07 07:27 | Operative Note ---
Date of procedure: 06/07/16 Pre-op diagnosis: Maroon hematochezia, unclear source, hematocrit at 25.8% Post-op diagnosis: other (Localized colitis noted in the proximal descending colon at 72 cm, biopsied. This was thought to be the source of the patient's bleeding. A single AVM was noted in the sigmoid that was cauterized, and moderate sized internal hemorrhoids noted on retroflex.) Procedure: PROCEDURE: Colonoscopy with cold biopsy for pathology and hot biopsy cauterization of AVM REFERRING PHYSICIAN: Chiquis Domínguez DO INDICATIONS: This is a patient who dropped her hematocrit from 33.7 down to 25.8% during this hospitalization with maroon stools, colonoscopy to check potential cause for this. The prior H&P was reviewed and interrim changes are as noted: Please see my GI consultation from 2 days ago ENDOSCOPIST: Jameson Urbina MD ENDOSCOPE: [employer] Video 100 System colonoscope COLON PREPARATION: 238 gm of PEG containing laxative and 1.9 liters of gatoraid/sports drink and dulcolax 15 mg q8 hours x 3 ASA CLASS: 3 EXAM: CV: regular rate and rhythm Respiratory: Clear without wheezes Abdominal: active bowel sounds Rectal: Good tone, no fissures or fistulas MEDICATION: Per nursing anesthesia protocol, see their notes PROCEDURE: After discussion of the potential risks and benefits of colonoscopy, the informed consent was obtained, from patient or health care surrogate. The patient was then placed in the left lateral decubitus position where sedation was achieved as noted above. Rectal examination was followed by insertion of the colonoscope. The colonoscope was passed under direct visualization to the cecum. Advancement was facilitated by insertion/withdrawl techniques, abdominal pressure and patient positioning. Once the cecal pole was reached, slow withdrawal was performed with the findings as noted below. The patient tolerated the procedure well and without complication. QUALITY OF PREP: Excellent WITHDRAWL TIME: 6 minutes 35 seconds BIOPSIES: Proximal descending colon ischemic appearing area PHOTOGRAPHS: Obtained FINDINGS: The musoca appeared normal in the following regions: rectum, splenic flexure, transverse colon, hepatic flexure, ascending colon and cecum. Position within the cecum was confirmed by ileocecal valve, appendiceal oriface , and the convergence of folds (crows foot). No polyp, or mass were noted throughout the colon. There was a single AVM that was incidentally noted in the sigmoid colon that was 8 mm in size and not bleeding that was cauterized with hot biopsy forceps (no biopsy taken). There was a localized area of ischemic colitis possibly surrounding a diverticulum although this was unclear noted at 72 cm thought to be the area of bleeding as it had a deep ulcerated center associated with it. This did not appear to be cancer. Biopsies were taken of this area which only covered about 3 cm. No diverticulosis noted. Intubation of the TI was achieved x 5 cm with normal appearence--no blood was seen to be coming down from the more proximal ileum. IMPRESSION: Localized colitis noted in the proximal descending colon at 72 cm , biopsied. This was thought to be the source of the patient's bleeding. A single AVM was noted in the sigmoid that was cauterized, and moderate sized internal hemorrhoids noted on retroflex. RECOMMENDATIONS: High fiber diet Repeat colonosocopy will be in 10 years. Citrucel 1 tablespoon in 12 oz juice BID: 1 bottle: :11 Follow up by phone for biopsy results in 1-2 weeks by phone The patient is no longer bleeding and can certainly be discharged today in my opinion, after she completes her blood. Jameson Urbina MD COPY TO: Chiquis Domínguez DO Anesthesia: MAC Surgeon / Physician: Jameson Urbina Estimated blood loss: minimal Specimens: other (Proximal descending colon ischemic region at 72 cm) Condition: stable Disposition: post procedure unit (G.I. Suite) Results - Labs CBC & BMP: 06/06/16 18:46 06/05/16 05:25 Discharge Plan - Discharge Medications No Action Fenofibrate [Tricor] 145 mg PO DAILY Amlodipine Besylate 5 mg PO DAILY Allopurinol 300 mg PO DAILY Pravastatin [Pravachol] 20 mg PO BEDTIME Metoprolol Succinate 100 mg PO DAILY Aspirin [Ecotrin] 325 mg PO DAILY - Follow Up or Referral - Forms/Instructions
--- NOTE | 2016-06-07 07:35 | Anesthesia ---
Anesthesia Post OP - Post Ansesthetic Evaluation Patient seen in post op: Yes Resp: within normal limits CV: within normal limits Mental: within normal limits Temp: within normal limits [id number]: within normal limits Nausea and Vomiting: within normal limits Pain: within normal limits
--- NOTE | 2016-06-07 07:39 | Gastrointestinal Progress Note ---
Assessment and Plan (1) Lower gastrointestinal hemorrhage Status: Acute Assessment and plan: This patient has a likely diverticular bleed although ischemic colitis and bleeding from colon cancer not completely eliminated. Patient did have a colonoscopy done approximately 2 years ago but we do not have data as far as how far the endoscopist was able to get and what the findings were. Patient did not have any cramping associated with the blood loss and so ischemic colitis seems less likely as does infectious colitis as this was abrupt onset. Hemorrhoidal bleeding is in the differential as well especially given the low level of blood loss noted with hematocrit only dropping to 33%. We will proceed with colonoscopy tomorrow to determine the source of the blood loss. Risks of the procedure include but are not limited to: Bleeding, infection, perforation, cardiac and pulmonary compromise. Further recommendations post colonoscopy to occur tomorrow. MiraLAX prep tonight. 06/06/16--I was called by Dr. Domínguez last night to inform you the patient was throwing up her prep. Despite writing for IV Phenergan and the patient having Zofran and being offered NG tube through the night on multiple occasions the patient did not take any further prep aside from a few sips. Understandably, she is not clean this morning. I have canceled the colonoscopy. I am attempting to get the records of the previous colonoscopy from [facility] and we will obtain a tagged red blood cell scan this morning. If actively bleeding the tagged red blood cell scan will give us an idea of where the blood is coming from, if not actively bleeding the tagged red blood cell scan should indicate that the patient's bleeding has ceased at which point she could probably be fed provided she is not going to try and take the prep. I had the distinct impression the information we get from this test is going to be the only information we get from this hospital stay. We need to establish that her hematocrit has not dropped further --once this information is available, if she has stopped bleeding she could likely be discharged. 06/07/16--The source of the GI bleed became apparent on colonoscopy--> this was caused by a localized area of ischemia located at 72 cm, possibly associated with a diverticulum but with a deep ulcerated area that appeared to have had some recent bleeding, this area was biopsied. There was another AVM noted in the sigmoid that was incidentally picked up and burned with a hot biopsy forceps as well. Moderate sized internal hemorrhoids were noted on retroflex, no polyps were noted or cancer. The terminal ileum also appeared normal without blood refluxing from further up in the colon. The patient did not have any active bleeding and should do fine upon discharge. I am writing her for an appropriate diet. She can be discharged today in my opinion. Current Visit: Yes (2) Acute posthemorrhagic anemia Status: Acute Assessment and plan: Again, this patient's hematocrit is only dropped down to 33%. I suspect it is equilibrating at this point. She does take an aspirin a day and so a brisk upper GI bleed is in the differential however given her initial stools seen as bright red this seems much less likely. We will look through the patient's colon and into the terminal ileum which should determine whether or not there is blood loss he seen from higher in the GI tract. Clear liquid diet today in preparation for the colonoscopy tomorrow, we will continue to follow the patient 's hematocrit over time. 06/06/16--No further blood counts had been drawn yesterday, I have written for these to be done every 12 hours for the remainder of her hospital stay. Note that the patient's daughter is trying to get the patient out by Friday in order to attend a "surprise birthday alliance party". If the tagged red blood cell scan is positive for bleeding we may have to press harder to get the NG tube and get the prep down. 06/07/16--Tagged red blood cell scan was negative yesterday but the creatinine dropped so her family we elected to do the colonoscopy today which did demonstrate a area of localized ischemic colitis in the proximal descending colon that was biopsied. A single AVM was noted as well, the patient can be discharged today in my opinion once her blood is completed. She is not actively bleeding now. Current Visit: Yes (3) Abnormal CT scan, gastrointestinal tract Status: Acute Assessment and plan: This patient has multiple liver and kidney cysts which likely are having minimal physical impact on her. She does have at least an asymptomatic gallstone seen on CT scan--these are commonly seen in 10% of individuals. No need to proceed with cholecystectomy until she becomes symptomatic. I am not sure at what level renal cysts need to be fenestrated/removed, hers are asymptomatic even at 11.5 cm with "mass-effect". 06/06/16--see above. Current Visit: Yes Gastroenterology - PN: Subj Interval history: No new complaints. Exam (Progress Note) - Constitutional Vitals: Period Temp Pulse Resp BP Sys/Mosher Pulse Ox Last 24 Hr 96.7 F-98.6 F 55-79 16-20 130-184/68-92 94-99 General appearance: no acute distress - Head Head exam: Present: normocephalic, atraumatic - Eye Eye exam: Present: EOMI - Respiratory Respiratory exam: Present: clear to auscultation bilaterally - Cardiovascular Cardiovascular exam: Present: regular rate and rhythm - GI/Abdominal GI/Abdominal exam: Present: normal bowel sounds, soft. Absent: tenderness, rebound - Extremities Exam Extremities exam: Present: normal inspection. Absent: edema - Neurological Exam Neurological exam: Present: alert, oriented X3 - Psychiatric Psychiatric exam: Present: normal affect, normal mood - Skin Skin exam: Present: warm Results - Labs CBC & BMP: 06/06/16 18:46 06/05/16 05:25
[2016-06-07] MEDS: amLODIPine 5 MG TABLET PO SCH (08:59)
[2016-06-07] MEDS: METOPROLOL SUCCINATE XL 100 MG TABLET PO SCH (09:00)
[2016-06-07] MEDS: PANTOPRAZOLE 40 MG VIAL IV SCH (09:00)
[2016-06-07] MEDS: ALLOPURINOL 300 MG TABLET PO SCH (09:00)
[2016-06-07] MEDS: FENOFIBRATE 145 MG TABLET PO SCH (09:00)
[2016-06-07 09:22] LABS: Hematocrit 34.6 VOL% (35.7-47.0)
[2016-06-07 09:30] LABS: Hemoglobin 11.5 GM/DL (12.0-16.0)
[2016-06-07 09:59] LABS: Calcium 8.3 MG/DL (8.5-10.1); Osmolality,Calculated 287.6 MOS/KG (273-304); Potassium 3.4 MMOL/L (3.5-5.1)
[2016-06-07] MEDS: CIPROFLOXACIN INJ 200 MG in PREMIX 1 EACH IV SCH (15:34)
--- NOTE | 2016-06-07 16:33 | Internal Med Progress Note ---
Assessment and Plan (1) Renal cysts, acquired, bilateral Problem details: mass like effect Status: Chronic Current Visit: Yes (2) Lower gastrointestinal hemorrhage Status: Acute Current Visit: Yes (3) Hypertension Status: Chronic Current Visit: Yes Qualifiers: Hypertension type: essential hypertension Qualified Code(s): I10 - Essential (primary) hypertension (4) Polycystic kidney disease Status: Chronic Current Visit: Yes (5) Blood loss anemia Status: Acute Current Visit: Yes Internal Medicine - PN: Subj Interval history: Ms. Rodney is a 80 year old female with history of stroke/TIA, HTN, chronic renal insufficiency, OA, dyslipidemia, gout, diverticulosis/diverticulitis with episode years ago, who presented to ER with acute GI bleed. She denies pain. Dr. Urbina has been consulted to further investigate. Also, CT revealed an incidental finding of large renal cysts with mass like effect. Consulting Dr. Ko Smith to evaluate severity and whether she needs surgical therapy. Discussed with daughter. Today, , discussed with Dr. Ko Smith that the renal cysts are simple cysts, and observation is recommended rather than procedure. She does not have hydronephrosis from mass effect. Friday, was going to discharge her but she had another bloody stool. Discussed with family that she needs to stay until bloody stools resolve. Spoke with Dr. Urbina. Have asked patient, that next bloody stool, the nurse needs to see it. The patient reported it to the nurse, but had flushed it away before the nurse could see. However, will keep her here and add antibiotic coverage for ischemic colitis, full liquid diet. Anemia improved with blood transfusion. Exam (Progress Note) - Constitutional Vitals: Period Temp Pulse Resp BP Sys/Mosher Pulse Ox Last 24 Hr 96.7 F-98.6 F 58-80 16-20 132-189/68-92 94-100 Exam: General appearance: no acute distress - Respiratory Respiratory exam: Present: clear to auscultation bilaterally - Cardiovascular Cardiovascular exam: Present: regular rate and rhythm - GI/Abdominal GI/Abdominal exam: Present: soft. Absent: tenderness - Extremities Exam Extremities exam: Absent: edema - Neurological Exam Neurological exam: Present: alert - Psychiatric Psychiatric exam: Present: flat affect - Skin Skin exam: Present: warm, dry Vitals reviewed. Results - Labs CBC & BMP: 06/07/16 09:16 06/07/16 09:16
[2016-06-07] MEDS: POTASSIUM CHLORIDE 20 MEQ PACK PO SCH (17:11)
[2016-06-07] MEDS: metroNIDAZOLE INJ 250 MG in IV BAG 1 EACH IV SCH (17:13)
[2016-06-07] MEDS: PRAVASTATIN 20 MG TABLET PO SCH (21:39)
[2016-06-08] MEDS: metroNIDAZOLE INJ 250 MG in IV BAG 1 EACH IV SCH ×4 (00:33→18:14)
[2016-06-08 03:44] LABS: Basophils % 0.2 % (0.0-0.8); Eosinophils # 0.2 10*3/uL (0.0-0.87); Eosinophils % 2.5 % (0.00-10.9); Hematocrit 22.9 VOL% (35.7-47.0); Hemoglobin 7.6 GM/DL (12.0-16.0); Immature Granulocytes % 0.6 %; Immature Granulocytes Absolute 0.06 #; Lymphocytes # 1.7 10*3/uL (1.4-4.0); Lymphocytes % 17.9 % (21.3-54.2); Mean Corpuscular HGB Conc 33.2 GM/DL (32-36); Mean Corpuscular Hemoglobin 29 PG (27-34); Mean Corpuscular Volume 88.1 FL (87-102); Mean Platelet Volume 12.1 FL (9.6-12.0); Monocytes # 0.7 10*3/uL (0.11-0.8); Monocytes % 7.2 % (1.7-12.7); Neutrophils # 6.7 10*3/uL (1.4-7.4); Neutrophils % 71.6 % (38.7-73.9); Platelet Count 179 T/CUMM (130-400); White Blood Count 9.4 T/CUMM (4-12)
[2016-06-08 03:50] LABS: Calcium 8.1 MG/DL (8.5-10.1); Osmolality,Calculated 296.3 MOS/KG (273-304); Potassium 4.1 MMOL/L (3.5-5.1)
[2016-06-08] MEDS ORDERED: SODIUM CHLORIDE 0.9% 250 ML IV PRN (04:45)
[2016-06-08] MEDS: CIPROFLOXACIN INJ 200 MG in PREMIX 1 EACH IV SCH ×2 (05:36→16:18)
--- NOTE | 2016-06-08 06:28 | Family Practice Progress Note ---
Family Practice - PN: Subj Interval history: Patient states she had a good night and has absolutely no pain or discomfort. I note that her hematocrit is down to 22.9 this morning and have ordered 2 more units of packed red blood cells to be transfused. She states she continues to have some blood in her stool. This is both dark and bright blood. I do not think it safe to send her home today obviously. Exam (Progress Note) - Constitutional Vitals: Period Temp Pulse Resp BP Sys/Mosher Pulse Ox Last 24 Hr 96.7 F-99.0 F 60-80 16-20 131-189/68-92 94-100 Exam: Objective reveals a pleasant black female who is awake alert and able to give a good history. She looks extremely comfortable and calm. Cardiovascular: Heart rates regular without murmurs or gallops Respiratory: The lungs clear to auscultation bilaterally. Abdomen: Abdomen soft and nontender to palpation. Bowel sounds were appreciated in all quadrants. Results - Labs CBC & BMP: 06/08/16 02:49 06/08/16 02:49 Lab Results: I have reviewed the past 24 hour labs Assessment and Plan (1) Ischemic colitis Status: Acute Assessment and plan: 06/08/2016: Patient is having absolutely no pain or discomfort. Would recommend continuing antibiotic therapy. She is going to require another transfusion. Current Visit: Yes (2) Lower gastrointestinal hemorrhage Status: Acute Assessment and plan: 06/08/2016: Patient continues to bleed, will need 2 more units of packed red blood cells repeat hematocrit in 6 hours and CBC in the a.m. Current Visit: Yes
[2016-06-08] MEDS: BISACODYL 5 MG TABLET PO SCH (07:13)
[2016-06-08 07:45] LABS: Hematocrit 22.1 VOL% (35.7-47.0); Hemoglobin 7.3 GM/DL (12.0-16.0)
[2016-06-08] MEDS: FENOFIBRATE 145 MG TABLET PO SCH (08:50)
[2016-06-08] MEDS: METOPROLOL SUCCINATE XL 100 MG TABLET PO SCH (08:50)
[2016-06-08] MEDS: amLODIPine 5 MG TABLET PO SCH (08:50)
[2016-06-08] MEDS: POTASSIUM CHLORIDE 20 MEQ PACK PO SCH (08:50)
[2016-06-08] MEDS: ALLOPURINOL 300 MG TABLET PO SCH (08:50)
[2016-06-08] MEDS: PANTOPRAZOLE 40 MG VIAL IV SCH (08:50)
--- NOTE | 2016-06-08 15:48 | Gastrointestinal Progress Note ---
Assessment and Plan (1) Lower gastrointestinal hemorrhage Status: Acute Assessment and plan: This patient has a likely diverticular bleed although ischemic colitis and bleeding from colon cancer not completely eliminated. Patient did have a colonoscopy done approximately 2 years ago but we do not have data as far as how far the endoscopist was able to get and what the findings were. Patient did not have any cramping associated with the blood loss and so ischemic colitis seems less likely as does infectious colitis as this was abrupt onset. Hemorrhoidal bleeding is in the differential as well especially given the low level of blood loss noted with hematocrit only dropping to 33%. We will proceed with colonoscopy tomorrow to determine the source of the blood loss. Risks of the procedure include but are not limited to: Bleeding, infection, perforation, cardiac and pulmonary compromise. Further recommendations post colonoscopy to occur tomorrow. MiraLAX prep tonight. 06/06/16--I was called by Dr. Domínguez last night to inform you the patient was throwing up her prep. Despite writing for IV Phenergan and the patient having Zofran and being offered NG tube through the night on multiple occasions the patient did not take any further prep aside from a few sips. Understandably, she is not clean this morning. I have canceled the colonoscopy. I am attempting to get the records of the previous colonoscopy from [facility] and we will obtain a tagged red blood cell scan this morning. If actively bleeding the tagged red blood cell scan will give us an idea of where the blood is coming from, if not actively bleeding the tagged red blood cell scan should indicate that the patient's bleeding has ceased at which point she could probably be fed provided she is not going to try and take the prep. I had the distinct impression the information we get from this test is going to be the only information we get from this hospital stay. We need to establish that her hematocrit has not dropped further --once this information is available, if she has stopped bleeding she could likely be discharged. 06/07/16--The source of the GI bleed became apparent on colonoscopy--> this was caused by a localized area of ischemia located at 72 cm, possibly associated with a diverticulum but with a deep ulcerated area that appeared to have had some recent bleeding, this area was biopsied. There was another AVM noted in the sigmoid that was incidentally picked up and burned with a hot biopsy forceps as well. Moderate sized internal hemorrhoids were noted on retroflex, no polyps were noted or cancer. The terminal ileum also appeared normal without blood refluxing from further up in the colon. The patient did not have any active bleeding and should do fine upon discharge. I am writing her for an appropriate diet. She can be discharged today in my opinion. 06/08/16--After the colonoscopy was complete the patient had a single bloody bowel movements but over the course of the evening time patient has had 2 more that have been quite voluminous by report. She was not significantly bleeding at the time we did the colonoscopy but a few biopsies were done and several polyps were removed. I suspect that she may be bleeding from the same area of ischemia located at 72 cm in the proximal descending colon, Dr. Chaidez will be evaluating the tagged red blood cell scan that we have ordered at this time. If there is a brisk enough bleeding point seen the patient may benefit from arteriography. Otherwise continue observation is suggested. Ultimately if bleeding cannot be controlled by endoscopic or radiographic means the patient may require a left hemicolectomy. Surgery has not been consulted. Current Visit: Yes (2) Acute posthemorrhagic anemia Status: Acute Assessment and plan: Again, this patient's hematocrit is only dropped down to 33%. I suspect it is equilibrating at this point. She does take an aspirin a day and so a brisk upper GI bleed is in the differential however given her initial stools seen as bright red this seems much less likely. We will look through the patient's colon and into the terminal ileum which should determine whether or not there is blood loss he seen from higher in the GI tract. Clear liquid diet today in preparation for the colonoscopy tomorrow, we will continue to follow the patient 's hematocrit over time. 06/06/16--No further blood counts had been drawn yesterday, I have written for these to be done every 12 hours for the remainder of her hospital stay. Note that the patient's daughter is trying to get the patient out by Friday in order to attend a "surprise birthday constitution party". If the tagged red blood cell scan is positive for bleeding we may have to press harder to get the NG tube and get the prep down. 06/07/16--Tagged red blood cell scan was negative yesterday but the creatinine dropped so her family we elected to do the colonoscopy today which did demonstrate a area of localized ischemic colitis in the proximal descending colon that was biopsied. A single sigmoid AVM was noted as well, the patient can be discharged today in my opinion once her blood is completed. She is not actively bleeding now. 06/08/16--The patient had a brief improvement in her hematocrit but has since dropped her blood counts down. Yesterday at 8 AM hematocrit was 34.6% dropping down to 22.9% at midnight and at 4:00 this morning was down to 22.1%. She has been getting another 2 units of blood which is being transfused at this time. Current Visit: Yes (3) Abnormal CT scan, gastrointestinal tract Status: Acute Assessment and plan: This patient has multiple liver and kidney cysts which likely are having minimal physical impact on her. She does have at least an asymptomatic gallstone seen on CT scan--these are commonly seen in 10% of individuals. No need to proceed with cholecystectomy until she becomes symptomatic. I am not sure at what level renal cysts need to be fenestrated/removed, hers are asymptomatic even at 11.5 cm with "mass-effect". 06/06/16--see above. 06/08/16--no change. Current Visit: Yes Gastroenterology - PN: Subj Interval history: The patient has had her third bloody bowel movement today which does not appear to be slowing down or stopping. Nursing staff called me with her hematocrit drop over the evening time, now being given another 2 units to make a total of 4 units she is received since her arrival. She is not feeling much in the way of abdominal pain simply an urgency to have stools. I suspect strongly that this may be bleeding from the same ischemic appearing area at 72 cm in the descending colon but I have asked Dr. Chaidez to have the patient taken to tagged red blood cell scan to see if there is enough bleeding to warrant an angiography. This will be her second tagged red blood cell scan as the last one was negative. Exam (Progress Note) - Constitutional Vitals: Period Temp Pulse Resp BP Sys/Mosher Pulse Ox Last 24 Hr 97.7 F-99.0 F 58-72 18-20 106-141/62-81 94-100 General appearance: mild distress - Head Head exam: Present: normocephalic - Eye Eye exam: Present: EOMI - Respiratory Respiratory exam: Present: clear to auscultation bilaterally - Cardiovascular Cardiovascular exam: Present: regular rate and rhythm - GI/Abdominal GI/Abdominal exam: Present: soft. Absent: distended, guarding, tenderness, rebound - Neurological Exam Neurological exam: Present: alert, oriented X3, CN II-XII intact. Absent: motor sensory deficit - Psychiatric Psychiatric exam: Present: normal affect, normal mood - Skin Skin exam: Present: warm Results - Labs CBC & BMP: 06/08/16 07:18 06/08/16 02:49
[2016-06-08 17:19] LABS: Hematocrit 30.1 VOL% (35.7-47.0)
--- NOTE | 2016-06-08 18:12 | Nuclear Medicine Report ---
NM GI bleeding Indication: Recurrent GI bleed. TAGGED RED CELL BLEEDING SCAN Technique: 25 mCi technetium 99 labeled PYP was injected for in vivo tagging of RBCs. Planar images of the abdomen and pelvis were then obtained. Comparison: Tagged red cell scan 06/06/2016. Findings: No active hemorrhage identified. Impression: Negative GI bleed. PROCEDURE INTERPRETED AT [facility] DEPARTMENT OF RADIOLOGY Final Report Signed by: Tony Chaidez M.D.
[2016-06-08] MEDS: PRAVASTATIN 20 MG TABLET PO SCH (20:22)
[2016-06-09] MEDS: metroNIDAZOLE INJ 250 MG in IV BAG 1 EACH IV SCH ×3 (00:18→12:06)
[2016-06-09 01:23] LABS: Basophils % 0.3 % (0.0-0.8); Eosinophils # 0.5 10*3/uL (0.0-0.87); Eosinophils % 5.5 % (0.00-10.9); Hematocrit 26.9 VOL% (35.7-47.0); Hemoglobin 8.8 GM/DL (12.0-16.0); Immature Granulocytes % 0.7 %; Immature Granulocytes Absolute 0.06 #; Lymphocytes % 21.8 % (21.3-54.2); Mean Corpuscular HGB Conc 32.7 GM/DL (32-36); Mean Corpuscular Hemoglobin 29 PG (27-34); Mean Corpuscular Volume 89.1 FL (87-102); Mean Platelet Volume 11.6 FL (9.6-12.0); Monocytes # 0.7 10*3/uL (0.11-0.8); Monocytes % 7.2 % (1.7-12.7); Neutrophils # 5.9 10*3/uL (1.4-7.4); Neutrophils % 64.5 % (38.7-73.9); Platelet Count 166 T/CUMM (130-400); Red Blood Count 3.02 MC/CUMM (3.8-5.5); Red Cell Distribution Width 15.6 % (9.3-17.3); White Blood Count 9.1 T/CUMM (4-12)
[2016-06-09] MEDS: CIPROFLOXACIN INJ 200 MG in PREMIX 1 EACH IV SCH ×2 (03:33→15:19)
--- NOTE | 2016-06-09 07:13 | Family Practice Progress Note ---
Family Practice - PN: Subj Interval history: Patient states she is doing well and not certain if she has had any more bloody diarrhea or not. She denies any abdominal pain this morning. Her hematocrit this morning is 26.9. Exam (Progress Note) - Constitutional Vitals: Period Temp Pulse Resp BP Sys/Mosher Pulse Ox Last 24 Hr 97.3 F-98.3 F 58-70 18-20 106-166/62-81 94-99 Exam: Objective reveals a pleasant black female who is awake alert and able to give a good history. She tells me she is doing well and not having any tenderness. Cardiovascular: Heart rates regular without murmurs or gallops Respiratory: The lungs clear to auscultation bilaterally. Abdomen: Abdomen soft but she does have some left upper quadrant tenderness to palpation. Bowel sounds were appreciated in all quadrants. Results - Labs CBC & BMP: 06/09/16 00:56 06/08/16 02:49 Lab Results: I have reviewed the past 24 hour labs Assessment and Plan (1) Ischemic colitis Status: Acute Assessment and plan: 06/08/2016: Patient is having absolutely no pain or discomfort. Would recommend continuing antibiotic therapy. She is going to require another transfusion. 06/09/2016: Patient's bleeding appears to have lessened. Current Visit: Yes (2) Lower gastrointestinal hemorrhage Status: Acute Assessment and plan: 06/08/2016: Patient continues to bleed, will need 2 more units of packed red blood cells repeat hematocrit in 6 hours and CBC in the a.m. 06/09/2016: Hematocrit is 26.9 this morning. Current Visit: Yes
[2016-06-09] MEDS: POTASSIUM CHLORIDE 20 MEQ PACK PO SCH (08:39)
[2016-06-09] MEDS: amLODIPine 5 MG TABLET PO SCH (08:39)
[2016-06-09] MEDS: FENOFIBRATE 145 MG TABLET PO SCH (08:40)
[2016-06-09] MEDS: METOPROLOL SUCCINATE XL 100 MG TABLET PO SCH (08:40)
[2016-06-09] MEDS: ALLOPURINOL 300 MG TABLET PO SCH (08:40)
[2016-06-09] MEDS: PANTOPRAZOLE 40 MG VIAL IV SCH (08:41)
[2016-06-09 09:32] LABS: Hematocrit 26.7 VOL% (35.7-47.0); Hemoglobin 8.6 GM/DL (12.0-16.0)
--- NOTE | 2016-06-09 16:14 | Gastrointestinal Progress Note ---
Assessment and Plan (1) Lower gastrointestinal hemorrhage Status: Acute Assessment and plan: This patient has a likely diverticular bleed although ischemic colitis and bleeding from colon cancer not completely eliminated. Patient did have a colonoscopy done approximately 2 years ago but we do not have data as far as how far the endoscopist was able to get and what the findings were. Patient did not have any cramping associated with the blood loss and so ischemic colitis seems less likely as does infectious colitis as this was abrupt onset. Hemorrhoidal bleeding is in the differential as well especially given the low level of blood loss noted with hematocrit only dropping to 33%. We will proceed with colonoscopy tomorrow to determine the source of the blood loss. Risks of the procedure include but are not limited to: Bleeding, infection, perforation, cardiac and pulmonary compromise. Further recommendations post colonoscopy to occur tomorrow. MiraLAX prep tonight. 06/06/16--I was called by Dr. Domínguez last night to inform you the patient was throwing up her prep. Despite writing for IV Phenergan and the patient having Zofran and being offered NG tube through the night on multiple occasions the patient did not take any further prep aside from a few sips. Understandably, she is not clean this morning. I have canceled the colonoscopy. I am attempting to get the records of the previous colonoscopy from [facility] and we will obtain a tagged red blood cell scan this morning. If actively bleeding the tagged red blood cell scan will give us an idea of where the blood is coming from, if not actively bleeding the tagged red blood cell scan should indicate that the patient's bleeding has ceased at which point she could probably be fed provided she is not going to try and take the prep. I had the distinct impression the information we get from this test is going to be the only information we get from this hospital stay. We need to establish that her hematocrit has not dropped further --once this information is available, if she has stopped bleeding she could likely be discharged. 06/07/16--The source of the GI bleed became apparent on colonoscopy--> this was caused by a localized area of ischemia located at 72 cm, possibly associated with a diverticulum but with a deep ulcerated area that appeared to have had some recent bleeding, this area was biopsied. There was another AVM noted in the sigmoid that was incidentally picked up and burned with a hot biopsy forceps as well. Moderate sized internal hemorrhoids were noted on retroflex, no polyps were noted or cancer. The terminal ileum also appeared normal without blood refluxing from further up in the colon. The patient did not have any active bleeding and should do fine upon discharge. I am writing her for an appropriate diet. She can be discharged today in my opinion. 06/08/16--After the colonoscopy was complete the patient had a single bloody bowel movements but over the course of the evening time patient has had 2 more that have been quite voluminous by report. She was not significantly bleeding at the time we did the colonoscopy but a few biopsies were done and several polyps were removed. I suspect that she may be bleeding from the same area of ischemia located at 72 cm in the proximal descending colon, Dr. Chaidez will be evaluating the tagged red blood cell scan that we have ordered at this time. If there is a brisk enough bleeding point seen the patient may benefit from arteriography. Otherwise continue observation is suggested. Ultimately if bleeding cannot be controlled by endoscopic or radiographic means the patient may require a left hemicolectomy. Surgery has not been consulted. 06/09/16--stool appears to be doing much better at this point with less blood. The bleeding is not gone away completely but the patient is still on a full liquid diet and will advance this at this point to more solid diet. Tagged red blood cell scan was negative. Biopsies from the colon are still pending at this time. Current Visit: Yes (2) Acute posthemorrhagic anemia Status: Acute Assessment and plan: Again, this patient's hematocrit is only dropped down to 33%. I suspect it is equilibrating at this point. She does take an aspirin a day and so a brisk upper GI bleed is in the differential however given her initial stools seen as bright red this seems much less likely. We will look through the patient's colon and into the terminal ileum which should determine whether or not there is blood loss he seen from higher in the GI tract. Clear liquid diet today in preparation for the colonoscopy tomorrow, we will continue to follow the patient 's hematocrit over time. 06/06/16--No further blood counts had been drawn yesterday, I have written for these to be done every 12 hours for the remainder of her hospital stay. Note that the patient's daughter is trying to get the patient out by Friday in order to attend a "surprise birthday democrat". If the tagged red blood cell scan is positive for bleeding we may have to press harder to get the NG tube and get the prep down. 06/07/16--Tagged red blood cell scan was negative yesterday but the creatinine dropped so her family we elected to do the colonoscopy today which did demonstrate a area of localized ischemic colitis in the proximal descending colon that was biopsied. A single sigmoid AVM was noted as well, the patient can be discharged today in my opinion once her blood is completed. She is not actively bleeding now. 06/08/16--The patient had a brief improvement in her hematocrit but has since dropped her blood counts down. Yesterday at 8 AM hematocrit was 34.6% dropping down to 22.9% at midnight and at 4:00 this morning was down to 22.1%. She has been getting another 2 units of blood which is being transfused at this time. 06/09/16--Hematocrit is stable at 26-27% and we will continue to observe the patient at this point. She may be able to go home tomorrow she is stable. I will advance her diet at this time to see how she does with solids. Current Visit: Yes (3) Abnormal CT scan, gastrointestinal tract Status: Inactive Assessment and plan: This patient has multiple liver and kidney cysts which likely are having minimal physical impact on her. She does have at least an asymptomatic gallstone seen on CT scan--these are commonly seen in 10% of individuals. No need to proceed with cholecystectomy until she becomes symptomatic. I am not sure at what level renal cysts need to be fenestrated/removed, hers are asymptomatic even at 11.5 cm with "mass-effect". 06/06/16--see above. 06/08/16--no change. Current Visit: Yes Gastroenterology - PN: Subj Interval history: Hematocrit was up to 30.1 on 06/08/16 and dropped down to 26.9 this morning at 0400 and is still at 26.7% now, as of noon. We are continue to watch this the patient states that although she is having a little bit of maroon stool is far less than she encountered yesterday. A tagged red blood cell scan done yesterday was negative and so no angiography was pursued. Exam (Progress Note) - Constitutional Vitals: Period Temp Pulse Resp BP Sys/Mosher Pulse Ox Last 24 Hr 97.3 F-98.2 F 54-70 18-20 107-166/64-78 95-99 General appearance: no acute distress - Head Head exam: Present: normocephalic - Eye Eye exam: Present: EOMI Pupils: Present: NASRIN - Respiratory Respiratory exam: Present: clear to auscultation bilaterally - Cardiovascular Cardiovascular exam: Present: regular rate and rhythm - GI/Abdominal GI/Abdominal exam: Present: normal bowel sounds, soft. Absent: distended, guarding, tenderness, rebound - Extremities Exam Extremities exam: Absent: edema - Neurological Exam Neurological exam: Present: alert, oriented X3 - Psychiatric Psychiatric exam: Present: normal affect, normal mood - Skin Skin exam: Present: warm Results - Labs CBC & BMP: 06/09/16 09:19 06/08/16 02:49
[2016-06-09 17:07] LABS: Hematocrit 25.8 VOL% (35.7-47.0); Hemoglobin 8.6 GM/DL (12.0-16.0)
[2016-06-09] MEDS: PRAVASTATIN 20 MG TABLET PO SCH (21:07)
[2016-06-09] MEDS: metroNIDAZOLE 500 MG TABLET PO SCH (21:07)
[2016-06-10] MEDS: CIPROFLOXACIN 500 MG TABLET PO SCH ×3 (00:38→20:33)
[2016-06-10 00:43] LABS: Hematocrit 23.8 VOL% (35.7-47.0); Hemoglobin 7.9 GM/DL (12.0-16.0)
[2016-06-10] MEDS ORDERED: SODIUM CHLORIDE 0.9% 250 ML IV PRN (05:40)
[2016-06-10 06:01] LABS: Basophils % 0.3 % (0.0-0.8); Eosinophils # 0.4 10*3/uL (0.0-0.87); Eosinophils % 4.2 % (0.00-10.9); Hematocrit 25.4 VOL% (35.7-47.0); Hemoglobin 8.1 GM/DL (12.0-16.0); Immature Granulocytes % 0.9 %; Immature Granulocytes Absolute 0.08 #; Lymphocytes # 1.4 10*3/uL (1.4-4.0); Lymphocytes % 16.1 % (21.3-54.2); Mean Corpuscular HGB Conc 31.9 GM/DL (32-36); Mean Corpuscular Hemoglobin 29 PG (27-34); Mean Corpuscular Volume 90.7 FL (87-102); Mean Platelet Volume 11.5 FL (9.6-12.0); Monocytes # 0.6 10*3/uL (0.11-0.8); Monocytes % 6.8 % (1.7-12.7); Neutrophils # 6.2 10*3/uL (1.4-7.4); Neutrophils % 71.7 % (38.7-73.9); Platelet Count 185 T/CUMM (130-400); Red Cell Distribution Width 15.9 % (9.3-17.3); White Blood Count 8.7 T/CUMM (4-12)
[2016-06-10] MEDS: POTASSIUM CHLORIDE 20 MEQ PACK PO SCH ×2 (09:21→09:27)
[2016-06-10] MEDS: PANTOPRAZOLE 40 MG TABLET PO SCH (09:21)
[2016-06-10] MEDS: ALLOPURINOL 300 MG TABLET PO SCH (09:22)
[2016-06-10] MEDS: amLODIPine 5 MG TABLET PO SCH (09:22)
[2016-06-10] MEDS: FENOFIBRATE 145 MG TABLET PO SCH (09:22)
[2016-06-10] MEDS: metroNIDAZOLE 500 MG TABLET PO SCH ×3 (09:22→20:33)
[2016-06-10] MEDS: METOPROLOL SUCCINATE XL 100 MG TABLET PO SCH (09:22)
--- NOTE | 2016-06-10 11:06 | Pathology Report from [facility] ---
ACCESSION # : [id number] PATIENT NAME : Faby Rodney ORDERING DR : Jameson Urbina MD CLINICAL HX: GI Bleed POST-OP DX: Localized ischemia SPECIMEN INFO: Descending colon, biopsy GROSS DESCRIPTION: The specimen is received in formalin labeled with the patient 's name and consists of a 0.5 x 0.4 cm aggregate of can tissue. Submitted in one cassette. DIAGNOSIS FOR FABY RODNEY: DESCENDING COLON BIOPSIES: Focal ischemic colitis. SERVICE DATE: 06/07/2016 REPORT DATE: 06/10/2016 PATHOLOGIST: Boni Saeed M.D. [facility]
--- NOTE | 2016-06-10 18:24 | Gastrointestinal Progress Note ---
Assessment and Plan (1) Lower gastrointestinal hemorrhage Status: Acute Assessment and plan: This patient has a likely diverticular bleed although ischemic colitis and bleeding from colon cancer not completely eliminated. Patient did have a colonoscopy done approximately 2 years ago but we do not have data as far as how far the endoscopist was able to get and what the findings were. Patient did not have any cramping associated with the blood loss and so ischemic colitis seems less likely as does infectious colitis as this was abrupt onset. Hemorrhoidal bleeding is in the differential as well especially given the low level of blood loss noted with hematocrit only dropping to 33%. We will proceed with colonoscopy tomorrow to determine the source of the blood loss. Risks of the procedure include but are not limited to: Bleeding, infection, perforation, cardiac and pulmonary compromise. Further recommendations post colonoscopy to occur tomorrow. MiraLAX prep tonight. 06/06/16--I was called by Dr. Domínguez last night to inform you the patient was throwing up her prep. Despite writing for IV Phenergan and the patient having Zofran and being offered NG tube through the night on multiple occasions the patient did not take any further prep aside from a few sips. Understandably, she is not clean this morning. I have canceled the colonoscopy. I am attempting to get the records of the previous colonoscopy from [facility] and we will obtain a tagged red blood cell scan this morning. If actively bleeding the tagged red blood cell scan will give us an idea of where the blood is coming from, if not actively bleeding the tagged red blood cell scan should indicate that the patient's bleeding has ceased at which point she could probably be fed provided she is not going to try and take the prep. I had the distinct impression the information we get from this test is going to be the only information we get from this hospital stay. We need to establish that her hematocrit has not dropped further --once this information is available, if she has stopped bleeding she could likely be discharged. 06/07/16--The source of the GI bleed became apparent on colonoscopy--> this was caused by a localized area of ischemia located at 72 cm, possibly associated with a diverticulum but with a deep ulcerated area that appeared to have had some recent bleeding, this area was biopsied. There was another AVM noted in the sigmoid that was incidentally picked up and burned with a hot biopsy forceps as well. Moderate sized internal hemorrhoids were noted on retroflex, no polyps were noted or cancer. The terminal ileum also appeared normal without blood refluxing from further up in the colon. The patient did not have any active bleeding and should do fine upon discharge. I am writing her for an appropriate diet. She can be discharged today in my opinion. 06/08/16--After the colonoscopy was complete the patient had a single bloody bowel movements but over the course of the evening time patient has had 2 more that have been quite voluminous by report. She was not significantly bleeding at the time we did the colonoscopy but a few biopsies were done and several polyps were removed. I suspect that she may be bleeding from the same area of ischemia located at 72 cm in the proximal descending colon, Dr. Chaidez will be evaluating the tagged red blood cell scan that we have ordered at this time. If there is a brisk enough bleeding point seen the patient may benefit from arteriography. Otherwise continue observation is suggested. Ultimately if bleeding cannot be controlled by endoscopic or radiographic means the patient may require a left hemicolectomy. Surgery has not been consulted. 06/09/16--stool appears to be doing much better at this point with less blood. The bleeding is not gone away completely but the patient is still on a full liquid diet and will advance this at this point to more solid diet. Tagged red blood cell scan was negative. Biopsies from the colon are still pending at this time. 06/10/16--the patient continues to have bleeding at this point and has just been given her fourth unit of packed options include observation to allow time to heal versus interventional radiology and embolization which has not worked up to this point as she has never bled enough to see on tagged red blood cell scan versus surgery which would certainly be the most aggressive option and probably least desirable. Unfortunately I think we are led to the point where we need to support her until appropriate healing can occur. Current Visit: Yes (2) Acute posthemorrhagic anemia Status: Acute Assessment and plan: Again, this patient's hematocrit is only dropped down to 33%. I suspect it is equilibrating at this point. She does take an aspirin a day and so a brisk upper GI bleed is in the differential however given her initial stools seen as bright red this seems much less likely. We will look through the patient's colon and into the terminal ileum which should determine whether or not there is blood loss he seen from higher in the GI tract. Clear liquid diet today in preparation for the colonoscopy tomorrow, we will continue to follow the patient 's hematocrit over time. 06/06/16--No further blood counts had been drawn yesterday, I have written for these to be done every 12 hours for the remainder of her hospital stay. Note that the patient's daughter is trying to get the patient out by Friday in order to attend a "surprise birthday republican". If the tagged red blood cell scan is positive for bleeding we may have to press harder to get the NG tube and get the prep down. 06/07/16--Tagged red blood cell scan was negative yesterday but the creatinine dropped so her family we elected to do the colonoscopy today which did demonstrate a area of localized ischemic colitis in the proximal descending colon that was biopsied. A single sigmoid AVM was noted as well, the patient can be discharged today in my opinion once her blood is completed. She is not actively bleeding now. 06/08/16--The patient had a brief improvement in her hematocrit but has since dropped her blood counts down. Yesterday at 8 AM hematocrit was 34.6% dropping down to 22.9% at midnight and at 4:00 this morning was down to 22.1%. She has been getting another 2 units of blood which is being transfused at this time. 06/09/16--Hematocrit is stable at 26-27% and we will continue to observe the patient at this point. She may be able to go home tomorrow she is stable. I will advance her diet at this time to see how she does with solids. 06/10/16--The patient has dropped her hematocrit from 25% to 23% and back up to 25% again post another unit of blood. Dr. Domínguez will be giving her some more blood tonight, will continue to observe the patient on MiraLAX 3 times daily to help flush out the blood that is coming from higher in the GI tract. Discussed the case extensively with family member in the room and with the patient herself. They appear to be having difficulty understanding the concepts involved with ischemic colitis. Current Visit: Yes Gastroenterology - PN: Subj Interval history: Family members are at the bedside but are having difficulty comprehending the situation which was explained to them multiple times with gradually decreasing complexity. Biopsies have returned demonstrating ischemic colitis localized to an area about the size of a quarter around the splenic flexure at 72 cm. Options include observation to allow time to heal versus interventional radiology and embolization which has not worked up to this point as she has never bled enough to see on tagged red blood cell scan versus surgery which would certainly be the most aggressive option and probably least desirable. Unfortunately I think we are led to the point where we need to support her until appropriate healing can occur. Exam (Progress Note) - Constitutional Vitals: Period Temp Pulse Resp BP Sys/Mosher Pulse Ox Last 24 Hr 97.1 F-99.3 F 58-77 18-20 111-176/62-77 93-100 General appearance: no acute distress - Head Head exam: Present: normocephalic - Eye Eye exam: Present: EOMI - Respiratory Respiratory exam: Present: clear to auscultation bilaterally. Absent: rhonchi, wheezes - Cardiovascular Cardiovascular exam: Present: regular rate and rhythm - GI/Abdominal GI/Abdominal exam: Present: normal bowel sounds, soft. Absent: distended, guarding, tenderness, rebound - Neurological Exam Neurological exam: Present: alert, oriented X3 - Psychiatric Psychiatric exam: Present: normal affect, normal mood - Skin Skin exam: Present: warm Results - Labs CBC & BMP: 06/10/16 05:37 06/08/16 02:49
[2016-06-10 20:20] LABS: Hematocrit 32.1 VOL% (35.7-47.0); Hemoglobin 10.5 GM/DL (12.0-16.0)
[2016-06-10] MEDS: SENNA 8.6 MG TABLET PO SCH (20:33)
[2016-06-10] MEDS: PRAVASTATIN 20 MG TABLET PO SCH (20:34)
[2016-06-10] MEDS: POLYETHYLENE GLYCOL POWDER 17 GM PACK PO SCH (20:34)
--- NOTE | 2016-06-10 21:10 | Internal Med Progress Note ---
Assessment and Plan (1) Lower gastrointestinal hemorrhage Status: Acute Current Visit: Yes (2) Hypertension Status: Chronic Current Visit: Yes Qualifiers: Hypertension type: essential hypertension Qualified Code(s): I10 - Essential (primary) hypertension (3) Blood loss anemia Status: Acute Current Visit: Yes (4) Ischemic colitis Status: Acute Current Visit: Yes Internal Medicine - PN: Subj Interval history: Ms. Rodney is a 80 year old female with history of stroke/TIA, HTN, chronic renal insufficiency, OA, dyslipidemia, gout, diverticulosis/diverticulitis with episode years ago, who presented to ER with acute GI bleed. She denies pain. Dr. Urbina has been consulted to further investigate. Also, CT revealed an incidental finding of large renal cysts with mass like effect. Consulting Dr. Ko Smith to evaluate severity and whether she needs surgical therapy. Discussed with daughter. Today, , discussed with Dr. Ko Smith that the renal cysts are simple cysts, and observation is recommended rather than procedure. She does not have hydronephrosis from mass effect. Friday, was going to discharge her but she had another bloody stool. Discussed with family that she needs to stay until bloody stools resolve. Spoke with Dr. Urbina. Have asked patient, that next bloody stool, the nurse needs to see it. The patient reported it to the nurse, but had flushed it away before the nurse could see. However, will keep her here and add antibiotic coverage for ischemic colitis, full liquid diet. Anemia improved with blood transfusion. Friday, she had another 2 units blood transfusion today. She has leakage at the site of ischemic colitis. Will discharge her after H&H has stabilized. Exam (Progress Note) - Constitutional Vitals: Period Temp Pulse Resp BP Sys/Mosher Pulse Ox Last 24 Hr 97.1 F-99.3 F 58-77 18-20 111-176/65-77 93-100 Exam: General appearance: no acute distress - Respiratory Respiratory exam: Present: clear to auscultation bilaterally - Cardiovascular Cardiovascular exam: Present: regular rate and rhythm - GI/Abdominal GI/Abdominal exam: Present: soft. Absent: tenderness - Extremities Exam Extremities exam: Absent: edema - Neurological Exam Neurological exam: Present: alert - Psychiatric Psychiatric exam: Present: normal mood - Skin Skin exam: Present: warm, dry Vitals reviewed. Results - Labs CBC & BMP: 06/10/16 20:14 06/08/16 02:49
--- NOTE | 2016-06-11 06:48 | Gastrointestinal Progress Note ---
Assessment and Plan (1) Lower gastrointestinal hemorrhage Status: Acute Assessment and plan: This patient has a likely diverticular bleed although ischemic colitis and bleeding from colon cancer not completely eliminated. Patient did have a colonoscopy done approximately 2 years ago but we do not have data as far as how far the endoscopist was able to get and what the findings were. Patient did not have any cramping associated with the blood loss and so ischemic colitis seems less likely as does infectious colitis as this was abrupt onset. Hemorrhoidal bleeding is in the differential as well especially given the low level of blood loss noted with hematocrit only dropping to 33%. We will proceed with colonoscopy tomorrow to determine the source of the blood loss. Risks of the procedure include but are not limited to: Bleeding, infection, perforation, cardiac and pulmonary compromise. Further recommendations post colonoscopy to occur tomorrow. MiraLAX prep tonight. 06/06/16--I was called by Dr. Domínguez last night to inform you the patient was throwing up her prep. Despite writing for IV Phenergan and the patient having Zofran and being offered NG tube through the night on multiple occasions the patient did not take any further prep aside from a few sips. Understandably, she is not clean this morning. I have canceled the colonoscopy. I am attempting to get the records of the previous colonoscopy from [facility] and we will obtain a tagged red blood cell scan this morning. If actively bleeding the tagged red blood cell scan will give us an idea of where the blood is coming from, if not actively bleeding the tagged red blood cell scan should indicate that the patient's bleeding has ceased at which point she could probably be fed provided she is not going to try and take the prep. I had the distinct impression the information we get from this test is going to be the only information we get from this hospital stay. We need to establish that her hematocrit has not dropped further --once this information is available, if she has stopped bleeding she could likely be discharged. 06/07/16--The source of the GI bleed became apparent on colonoscopy--> this was caused by a localized area of ischemia located at 72 cm, possibly associated with a diverticulum but with a deep ulcerated area that appeared to have had some recent bleeding, this area was biopsied. There was another AVM noted in the sigmoid that was incidentally picked up and burned with a hot biopsy forceps as well. Moderate sized internal hemorrhoids were noted on retroflex, no polyps were noted or cancer. The terminal ileum also appeared normal without blood refluxing from further up in the colon. The patient did not have any active bleeding and should do fine upon discharge. I am writing her for an appropriate diet. She can be discharged today in my opinion. 06/08/16--After the colonoscopy was complete the patient had a single bloody bowel movements but over the course of the evening time patient has had 2 more that have been quite voluminous by report. She was not significantly bleeding at the time we did the colonoscopy but a few biopsies were done and several polyps were removed. I suspect that she may be bleeding from the same area of ischemia located at 72 cm in the proximal descending colon, Dr. Chaidez will be evaluating the tagged red blood cell scan that we have ordered at this time. If there is a brisk enough bleeding point seen the patient may benefit from arteriography. Otherwise continue observation is suggested. Ultimately if bleeding cannot be controlled by endoscopic or radiographic means the patient may require a left hemicolectomy. Surgery has not been consulted. 06/09/16--stool appears to be doing much better at this point with less blood. The bleeding is not gone away completely but the patient is still on a full liquid diet and will advance this at this point to more solid diet. Tagged red blood cell scan was negative. Biopsies from the colon are still pending at this time. 06/10/16--the patient continues to have bleeding at this point and has just been given her fourth unit of packed options include observation to allow time to heal versus interventional radiology and embolization which has not worked up to this point as she has never bled enough to see on tagged red blood cell scan versus surgery which would certainly be the most aggressive option and probably least desirable. Unfortunately I think we are led to the point where we need to support her until appropriate healing can occur. 06/11/16--Localized ischemic colitis in the colon, patient states that she is not having any further bleeding and is eating well. Hematocrit posttransfusion is up to 32%. We are in a state of watchful waiting. No further recommendations. If bleeding continues can consider surgery however this will be a last resort. See previous notes. Current Visit: Yes (2) Acute posthemorrhagic anemia Status: Acute Assessment and plan: Again, this patient's hematocrit is only dropped down to 33%. I suspect it is equilibrating at this point. She does take an aspirin a day and so a brisk upper GI bleed is in the differential however given her initial stools seen as bright red this seems much less likely. We will look through the patient's colon and into the terminal ileum which should determine whether or not there is blood loss he seen from higher in the GI tract. Clear liquid diet today in preparation for the colonoscopy tomorrow, we will continue to follow the patient 's hematocrit over time. 06/06/16--No further blood counts had been drawn yesterday, I have written for these to be done every 12 hours for the remainder of her hospital stay. Note that the patient's daughter is trying to get the patient out by Friday in order to attend a "surprise birthday libertarian". If the tagged red blood cell scan is positive for bleeding we may have to press harder to get the NG tube and get the prep down. 06/07/16--Tagged red blood cell scan was negative yesterday but the creatinine dropped so her family we elected to do the colonoscopy today which did demonstrate a area of localized ischemic colitis in the proximal descending colon that was biopsied. A single sigmoid AVM was noted as well, the patient can be discharged today in my opinion once her blood is completed. She is not actively bleeding now. 06/08/16--The patient had a brief improvement in her hematocrit but has since dropped her blood counts down. Yesterday at 8 AM hematocrit was 34.6% dropping down to 22.9% at midnight and at 4:00 this morning was down to 22.1%. She has been getting another 2 units of blood which is being transfused at this time. 06/09/16--Hematocrit is stable at 26-27% and we will continue to observe the patient at this point. She may be able to go home tomorrow she is stable. I will advance her diet at this time to see how she does with solids. 06/10/16--The patient has dropped her hematocrit from 25% to 23% and back up to 25% again post another unit of blood. Dr. Domínguez will be giving her some more blood tonight, will continue to observe the patient on MiraLAX 3 times daily to help flush out the blood that is coming from higher in the GI tract. Discussed the case extensively with family member in the room and with the patient herself. They appear to be having difficulty understanding the concepts involved with ischemic colitis. 06/11/16--the hematocrit is up to 32%. Patient feels well. Eating. No further bleeding as per the patient but she has fairly severe dementia. Discharge as per Dr. Domínguez when she feels this is appropriate. Current Visit: Yes Gastroenterology - PN: Subj Interval history: Patient says no further bleeding and no abdominal pain. She would like to go home, this is up to Dr. Domínguez. Exam (Progress Note) - Constitutional Vitals: Period Temp Pulse Resp BP Sys/Mosher Pulse Ox Last 24 Hr 97.1 F-99.3 F 58-77 16-20 110-176/60-77 93-98 General appearance: no acute distress - Eye Eye exam: Present: EOMI - Respiratory Respiratory exam: Present: clear to auscultation bilaterally - Cardiovascular Cardiovascular exam: Present: regular rate and rhythm - GI/Abdominal GI/Abdominal exam: Present: normal bowel sounds, soft. Absent: distended, tenderness, rebound - Neurological Exam Neurological exam: Present: alert, oriented X3 - Psychiatric Psychiatric exam: Present: normal affect, normal mood - Skin Skin exam: Present: warm Results - Labs CBC & BMP: 06/10/16 20:14 06/08/16 02:49
[2016-06-11 08:07] LABS: Basophils % 0.3 % (0.0-0.8); Eosinophils # 0.2 10*3/uL (0.0-0.87); Eosinophils % 2.7 % (0.00-10.9); Hematocrit 31.7 VOL% (35.7-47.0); Hemoglobin 10.6 GM/DL (12.0-16.0); Immature Granulocytes % 0.8 %; Immature Granulocytes Absolute 0.07 #; Lymphocytes # 1.3 10*3/uL (1.4-4.0); Lymphocytes % 14.4 % (21.3-54.2); Mean Corpuscular HGB Conc 33.4 GM/DL (32-36); Mean Corpuscular Hemoglobin 29 PG (27-34); Mean Corpuscular Volume 87.1 FL (87-102); Mean Platelet Volume 11.1 FL (9.6-12.0); Monocytes # 0.7 10*3/uL (0.11-0.8); Monocytes % 7.7 % (1.7-12.7); Neutrophils # 6.6 10*3/uL (1.4-7.4); Neutrophils % 74.1 % (38.7-73.9); Platelet Count 182 T/CUMM (130-400); Red Blood Count 3.64 MC/CUMM (3.8-5.5); Red Cell Distribution Width 15.7 % (9.3-17.3); White Blood Count 8.9 T/CUMM (4-12)
[2016-06-11 08:37] LABS: Albumin 2.8 G/DL (3.4-5.0); Bilirubin,Total 0.4 MG/DL (0.2-1.0); Calcium 8.4 MG/DL (8.5-10.1); Osmolality,Calculated 297.1 MOS/KG (273-304); Potassium 3.8 MMOL/L (3.5-5.1)
[2016-06-11] MEDS: POLYETHYLENE GLYCOL POWDER 17 GM PACK PO SCH ×3 (09:45→20:57)
[2016-06-11] MEDS: FENOFIBRATE 145 MG TABLET PO SCH (09:46)
[2016-06-11] MEDS: PANTOPRAZOLE 40 MG TABLET PO SCH (09:46)
[2016-06-11] MEDS: CIPROFLOXACIN 500 MG TABLET PO SCH ×2 (09:46→20:59)
[2016-06-11] MEDS: METOPROLOL SUCCINATE XL 100 MG TABLET PO SCH (09:46)
[2016-06-11] MEDS: ALLOPURINOL 300 MG TABLET PO SCH (09:46)
[2016-06-11] MEDS: SENNA 8.6 MG TABLET PO SCH ×2 (09:46→20:57)
[2016-06-11] MEDS: metroNIDAZOLE 500 MG TABLET PO SCH ×3 (09:46→20:59)
[2016-06-11] MEDS: POTASSIUM CHLORIDE 20 MEQ PACK PO SCH (09:46)
[2016-06-11] MEDS: amLODIPine 5 MG TABLET PO SCH (09:46)
--- NOTE | 2016-06-11 20:14 | Internal Med Progress Note ---
Assessment and Plan (1) Lower gastrointestinal hemorrhage Status: Acute Current Visit: Yes (2) Hypertension Status: Chronic Current Visit: Yes Qualifiers: Hypertension type: essential hypertension Qualified Code(s): I10 - Essential (primary) hypertension (3) Blood loss anemia Status: Acute Current Visit: Yes (4) Ischemic colitis Status: Acute Current Visit: Yes Internal Medicine - PN: Subj Interval history: Ms. Rodney is a 80 year old female with history of stroke/TIA, HTN, chronic renal insufficiency, OA, dyslipidemia, gout, diverticulosis/diverticulitis with episode years ago, who presented to ER with acute GI bleed. She denies pain. Dr. Urbina has been consulted to further investigate. Also, CT revealed an incidental finding of large renal cysts with mass like effect. Consulting Dr. Ko Smith to evaluate severity and whether she needs surgical therapy. Discussed with daughter. Today, , discussed with Dr. Ko Smith that the renal cysts are simple cysts, and observation is recommended rather than procedure. She does not have hydronephrosis from mass effect. Friday, was going to discharge her but she had another bloody stool. Discussed with family that she needs to stay until bloody stools resolve. Spoke with Dr. Urbina. Have asked patient, that next bloody stool, the nurse needs to see it. The patient reported it to the nurse, but had flushed it away before the nurse could see. However, will keep her here and add antibiotic coverage for ischemic colitis, full liquid diet. Anemia improved with blood transfusion. Friday, she had another 2 units blood transfusion today. She has leakage at the site of ischemic colitis. Will discharge her after H&H has stabilized. Friday, nausea and vomiting while on rounds. Exam (Progress Note) - Constitutional Vitals: Period Temp Pulse Resp BP Sys/Mosher Pulse Ox Last 24 Hr 98.3 F-98.7 F 65-73 16-20 110-136/60-75 97-100 Exam: General appearance: appears fatigued - Respiratory Respiratory exam: Present: clear to auscultation bilaterally - Cardiovascular Cardiovascular exam: Present: regular rate and rhythm - Extremities Exam Extremities exam: Absent: edema - Neurological Exam Neurological exam: Present: alert - Psychiatric Psychiatric exam: Present: normal mood - Skin Skin exam: Present: warm, dry Vitals reviewed. Results - Labs CBC & BMP: 06/11/16 07:50 06/11/16 07:50
[2016-06-11] MEDS: PRAVASTATIN 20 MG TABLET PO SCH (20:59)
--- NOTE | 2016-06-12 07:00 | Gastrointestinal Progress Note ---
Assessment and Plan (1) Lower gastrointestinal hemorrhage Status: Acute Assessment and plan: This patient has a likely diverticular bleed although ischemic colitis and bleeding from colon cancer not completely eliminated. Patient did have a colonoscopy done approximately 2 years ago but we do not have data as far as how far the endoscopist was able to get and what the findings were. Patient did not have any cramping associated with the blood loss and so ischemic colitis seems less likely as does infectious colitis as this was abrupt onset. Hemorrhoidal bleeding is in the differential as well especially given the low level of blood loss noted with hematocrit only dropping to 33%. We will proceed with colonoscopy tomorrow to determine the source of the blood loss. Risks of the procedure include but are not limited to: Bleeding, infection, perforation, cardiac and pulmonary compromise. Further recommendations post colonoscopy to occur tomorrow. MiraLAX prep tonight. 06/06/16--I was called by Dr. Domínguez last night to inform you the patient was throwing up her prep. Despite writing for IV Phenergan and the patient having Zofran and being offered NG tube through the night on multiple occasions the patient did not take any further prep aside from a few sips. Understandably, she is not clean this morning. I have canceled the colonoscopy. I am attempting to get the records of the previous colonoscopy from [facility] and we will obtain a tagged red blood cell scan this morning. If actively bleeding the tagged red blood cell scan will give us an idea of where the blood is coming from, if not actively bleeding the tagged red blood cell scan should indicate that the patient's bleeding has ceased at which point she could probably be fed provided she is not going to try and take the prep. I had the distinct impression the information we get from this test is going to be the only information we get from this hospital stay. We need to establish that her hematocrit has not dropped further --once this information is available, if she has stopped bleeding she could likely be discharged. 06/07/16--The source of the GI bleed became apparent on colonoscopy--> this was caused by a localized area of ischemia located at 72 cm, possibly associated with a diverticulum but with a deep ulcerated area that appeared to have had some recent bleeding, this area was biopsied. There was another AVM noted in the sigmoid that was incidentally picked up and burned with a hot biopsy forceps as well. Moderate sized internal hemorrhoids were noted on retroflex, no polyps were noted or cancer. The terminal ileum also appeared normal without blood refluxing from further up in the colon. The patient did not have any active bleeding and should do fine upon discharge. I am writing her for an appropriate diet. She can be discharged today in my opinion. 06/08/16--After the colonoscopy was complete the patient had a single bloody bowel movements but over the course of the evening time patient has had 2 more that have been quite voluminous by report. She was not significantly bleeding at the time we did the colonoscopy but a few biopsies were done and several polyps were removed. I suspect that she may be bleeding from the same area of ischemia located at 72 cm in the proximal descending colon, Dr. Chaidez will be evaluating the tagged red blood cell scan that we have ordered at this time. If there is a brisk enough bleeding point seen the patient may benefit from arteriography. Otherwise continue observation is suggested. Ultimately if bleeding cannot be controlled by endoscopic or radiographic means the patient may require a left hemicolectomy. Surgery has not been consulted. 06/09/16--stool appears to be doing much better at this point with less blood. The bleeding is not gone away completely but the patient is still on a full liquid diet and will advance this at this point to more solid diet. Tagged red blood cell scan was negative. Biopsies from the colon are still pending at this time. 06/10/16--the patient continues to have bleeding at this point and has just been given her fourth unit of packed options include observation to allow time to heal versus interventional radiology and embolization which has not worked up to this point as she has never bled enough to see on tagged red blood cell scan versus surgery which would certainly be the most aggressive option and probably least desirable. Unfortunately I think we are led to the point where we need to support her until appropriate healing can occur. 06/11/16--Localized ischemic colitis in the colon, patient states that she is not having any further bleeding and is eating well. Hematocrit posttransfusion is up to 32%. We are in a state of watchful waiting. No further recommendations. If bleeding continues can consider surgery however this will be a last resort. See previous notes. 06/12/16--Nursing staff indicates that the patient is having some ongoing burgundy stools (that I was hoping to flush out using MiraLAX) but also some bright red blood per rectum. Stools not witnessed by me and the hematocrit appears to be stable dropping slightly from 32.1% to 31.7%. I will arrange for a repeat tagged red blood cell scan with delayed imaging to see if a secondary source can be discovered. Ongoing bleeding is concerning. Current Visit: Yes (2) Acute posthemorrhagic anemia Status: Acute Assessment and plan: Again, this patient's hematocrit is only dropped down to 33%. I suspect it is equilibrating at this point. She does take an aspirin a day and so a brisk upper GI bleed is in the differential however given her initial stools seen as bright red this seems much less likely. We will look through the patient's colon and into the terminal ileum which should determine whether or not there is blood loss he seen from higher in the GI tract. Clear liquid diet today in preparation for the colonoscopy tomorrow, we will continue to follow the patient 's hematocrit over time. 06/06/16--No further blood counts had been drawn yesterday, I have written for these to be done every 12 hours for the remainder of her hospital stay. Note that the patient's daughter is trying to get the patient out by Friday in order to attend a "surprise birthday alliance party". If the tagged red blood cell scan is positive for bleeding we may have to press harder to get the NG tube and get the prep down. 06/07/16--Tagged red blood cell scan was negative yesterday but the creatinine dropped so her family we elected to do the colonoscopy today which did demonstrate a area of localized ischemic colitis in the proximal descending colon that was biopsied. A single sigmoid AVM was noted as well, the patient can be discharged today in my opinion once her blood is completed. She is not actively bleeding now. 06/08/16--The patient had a brief improvement in her hematocrit but has since dropped her blood counts down. Yesterday at 8 AM hematocrit was 34.6% dropping down to 22.9% at midnight and at 4:00 this morning was down to 22.1%. She has been getting another 2 units of blood which is being transfused at this time. 06/09/16--Hematocrit is stable at 26-27% and we will continue to observe the patient at this point. She may be able to go home tomorrow she is stable. I will advance her diet at this time to see how she does with solids. 06/10/16--The patient has dropped her hematocrit from 25% to 23% and back up to 25% again post another unit of blood. Dr. Domínguez will be giving her some more blood tonight, will continue to observe the patient on MiraLAX 3 times daily to help flush out the blood that is coming from higher in the GI tract. Discussed the case extensively with family member in the room and with the patient herself. They appear to be having difficulty understanding the concepts involved with ischemic colitis. 06/11/16--the hematocrit is up to 32%. Patient feels well. Eating. No further bleeding as per the patient but she has fairly severe dementia. Discharge as per Dr. Domínguez when she feels this is appropriate. 06/12/16--As noted above. Eating and having bowel movements. Fairly severe dementia, nursing input to observe stools is helpful. Current Visit: Yes Gastroenterology - PN: Subj Interval history: The patient is still not taking her MiraLAX that was meant to flush her out. Nurses report that she is having dark stools that are burgundy but also mixed with some fresh red blood by report. The hematocrit seems stable but if this is a continued bleed I would like to catch this early. We will order another tagged red blood cell scan at this time and see if this is positive will order delayed films as well. Exam (Progress Note) - Constitutional Vitals: Period Temp Pulse Resp BP Sys/Mosher Pulse Ox Last 24 Hr 98.1 F-98.7 F 56-73 18-20 119-136/62-75 97-100 General appearance: no acute distress - Eye Eye exam: Present: EOMI - Respiratory Respiratory exam: Present: clear to auscultation bilaterally - Cardiovascular Cardiovascular exam: Present: regular rate and rhythm - GI/Abdominal GI/Abdominal exam: Present: normal bowel sounds, soft. Absent: distended, tenderness, rebound - Neurological Exam Neurological exam: Present: alert, oriented X3, altered (Demented) - Psychiatric Psychiatric exam: Present: normal affect, normal mood - Skin Skin exam: Present: warm Results - Labs CBC & BMP: 06/11/16 07:50 06/11/16 07:50
[2016-06-12 07:10] LABS: Basophils % 0.2 % (0.0-0.8); Eosinophils # 0.1 10*3/uL (0.0-0.87); Eosinophils % 0.8 % (0.00-10.9); Hemoglobin 8.7 GM/DL (12.0-16.0); Immature Granulocytes % 0.9 %; Immature Granulocytes Absolute 0.09 #; Lymphocytes % 10.5 % (21.3-54.2); Mean Corpuscular HGB Conc 32.2 GM/DL (32-36); Mean Corpuscular Hemoglobin 29 PG (27-34); Mean Corpuscular Volume 89.7 FL (87-102); Mean Platelet Volume 11.4 FL (9.6-12.0); Monocytes # 0.8 10*3/uL (0.11-0.8); Monocytes % 8.2 % (1.7-12.7); Neutrophils # 7.8 10*3/uL (1.4-7.4); Neutrophils % 79.4 % (38.7-73.9); Platelet Count 195 T/CUMM (130-400); Red Blood Count 3.01 MC/CUMM (3.8-5.5); Red Cell Distribution Width 16.4 % (9.3-17.3); White Blood Count 9.9 T/CUMM (4-12)
[2016-06-12 07:39] LABS: Calcium 8.2 MG/DL (8.5-10.1); Osmolality,Calculated 302.9 MOS/KG (273-304)
[2016-06-12] MEDS: POLYETHYLENE GLYCOL POWDER 17 GM PACK PO SCH ×3 (08:36→21:39)
[2016-06-12] MEDS: POTASSIUM CHLORIDE 20 MEQ PACK PO SCH (08:36)
[2016-06-12] MEDS: FENOFIBRATE 145 MG TABLET PO SCH (09:02)
[2016-06-12] MEDS: amLODIPine 5 MG TABLET PO SCH (09:02)
[2016-06-12] MEDS: metroNIDAZOLE 500 MG TABLET PO SCH ×3 (09:02→21:29)
[2016-06-12] MEDS: CIPROFLOXACIN 500 MG TABLET PO SCH ×2 (09:02→21:29)
[2016-06-12] MEDS: PANTOPRAZOLE 40 MG TABLET PO SCH (09:02)
[2016-06-12] MEDS: METOPROLOL SUCCINATE XL 100 MG TABLET PO SCH (09:02)
[2016-06-12] MEDS: ALLOPURINOL 100 MG TABLET PO SCH (09:02)
[2016-06-12] MEDS: SENNA 8.6 MG TABLET PO SCH ×2 (09:02→21:38)
--- NOTE | 2016-06-12 09:39 | Nuclear Medicine Report ---
Exam: NM GI bleeding Date: 06/12/2016 6:51 AM Indication: GI bleeding, history of ischemic colitis at splenic flexure Comparison: 06/08/2016 and 06/06/2016 Findings: The patient was given 25 mCi of technetium 99m PYP tagged RBCs. Images were obtained for approximately one hour. Physiologic activity is present within the heart and bladder the kidneys are demonstrated bilaterally. There is activity in the right arm on the early imaging with tracking of radionuclide of the right arm injection site. No obvious GI bleed present. Impression: 1. No active gastrointestinal hemorrhage noted on today's exam. If further evaluation is warranted CT imaging with IV contrast CTA may be beneficial abdomen pelvis PROCEDURE INTERPRETED AT [facility] DEPARTMENT OF RADIOLOGY Final Report Signed by: Dr. Dieudonne Dockery
[2016-06-12] MEDS ORDERED: DEXTROSE 5% 1,000 ML IV SCH (11:00)
[2016-06-12 11:03] LABS: Hematocrit 28.6 VOL% (35.7-47.0); Hemoglobin 9.4 GM/DL (12.0-16.0)
--- NOTE | 2016-06-12 16:59 | Nuclear Medicine Report ---
NM GI bleeding delayed Indication: GI bleed. GI Bleeding Scan: Imaging over the abdomen and was performed 9 hours after the last series of images obtained at 0735 hours this morning. There is free pertechnetate present within the kidneys and bladder. Kidney activity has multiple defects which, when CT of the abdomen is reviewed from 06/05/2016, are shown to be multiple large renal cysts. No accumulation of activity is identified within the large or small bowel. Impression: No evidence of interval GI bleed. PROCEDURE INTERPRETED AT [facility] DEPARTMENT OF RADIOLOGY Final Report Signed by: Tony Chaidez M.D.
--- NOTE | 2016-06-12 18:29 | Internal Med Progress Note ---
Assessment and Plan (1) Lower gastrointestinal hemorrhage Status: Acute Current Visit: Yes (2) Hypertension Status: Chronic Current Visit: Yes Qualifiers: Hypertension type: essential hypertension Qualified Code(s): I10 - Essential (primary) hypertension (3) Blood loss anemia Status: Acute Current Visit: Yes (4) Ischemic colitis Status: Acute Current Visit: Yes Internal Medicine - PN: Subj Interval history: Ms. Rodney is a 80 year old female with history of stroke/TIA, HTN, chronic renal insufficiency, OA, dyslipidemia, gout, diverticulosis/diverticulitis with episode years ago, who presented to ER with acute GI bleed. She denies pain. Dr. Urbina has been consulted to further investigate. Also, CT revealed an incidental finding of large renal cysts with mass like effect. Consulting Dr. Ko Smith to evaluate severity and whether she needs surgical therapy. Discussed with daughter. Today, , discussed with Dr. Ko Smith that the renal cysts are simple cysts, and observation is recommended rather than procedure. She does not have hydronephrosis from mass effect. Friday, was going to discharge her but she had another bloody stool. Discussed with family that she needs to stay until bloody stools resolve. Spoke with Dr. Urbina. Have asked patient, that next bloody stool, the nurse needs to see it. The patient reported it to the nurse, but had flushed it away before the nurse could see. However, will keep her here and add antibiotic coverage for ischemic colitis, full liquid diet. Anemia improved with blood transfusion. Friday, she had another 2 units blood transfusion today. She has leakage at the site of ischemic colitis. Will discharge her after H&H has stabilized. Friday, nausea and vomiting while on rounds. Friday, still having bloody stool; not comfortable with discharging her. Discussed with sister at bedside. Will discuss with Dr. Urbina about the possibility of surgical repair. Exam (Progress Note) - Constitutional Vitals: Period Temp Pulse Resp BP Sys/Mosher Pulse Ox Last 24 Hr 98.1 F-99.0 F 56-68 18-20 119-133/62-72 97-99 Exam: General appearance: no acute distress - Respiratory Respiratory exam: Present: clear to auscultation bilaterally - Cardiovascular Cardiovascular exam: Present: regular rate and rhythm - Extremities Exam Extremities exam: Absent: edema - Neurological Exam Neurological exam: Present: alert - Psychiatric Psychiatric exam: Present: normal mood - Skin Skin exam: Present: warm, dry Vitals reviewed. Results - Labs CBC & BMP: 06/13/16 16:59 06/13/16 04:40
[2016-06-12] MEDS: PRAVASTATIN 20 MG TABLET PO SCH (21:29)
[2016-06-13] MEDS ORDERED: DEXTROSE 5% 1,000 ML IV SCH (01:30)
[2016-06-13 06:03] LABS: Basophils % 0.4 % (0.0-0.8); Eosinophils # 0.2 10*3/uL (0.0-0.87); Eosinophils % 2.6 % (0.00-10.9); Hematocrit 25.8 VOL% (35.7-47.0); Hemoglobin 8.3 GM/DL (12.0-16.0); Immature Granulocytes Absolute 0.09 #; Lymphocytes # 1.1 10*3/uL (1.4-4.0); Lymphocytes % 12.3 % (21.3-54.2); Mean Corpuscular HGB Conc 32.2 GM/DL (32-36); Mean Corpuscular Hemoglobin 29 PG (27-34); Mean Corpuscular Volume 91.2 FL (87-102); Mean Platelet Volume 11.8 FL (9.6-12.0); Monocytes # 0.7 10*3/uL (0.11-0.8); Neutrophils # 6.8 10*3/uL (1.4-7.4); Neutrophils % 75.7 % (38.7-73.9); Platelet Count 195 T/CUMM (130-400); Red Blood Count 2.83 MC/CUMM (3.8-5.5); Red Cell Distribution Width 16.5 % (9.3-17.3)
[2016-06-13 06:35] LABS: Calcium 8.1 MG/DL (8.5-10.1); Osmolality,Calculated 299.1 MOS/KG (273-304); Potassium 3.8 MMOL/L (3.5-5.1)
--- NOTE | 2016-06-13 08:33 | Gastrointestinal Progress Note ---
Assessment and Plan (1) Lower gastrointestinal hemorrhage Status: Acute Assessment and plan: This patient has a likely diverticular bleed although ischemic colitis and bleeding from colon cancer not completely eliminated. Patient did have a colonoscopy done approximately 2 years ago but we do not have data as far as how far the endoscopist was able to get and what the findings were. Patient did not have any cramping associated with the blood loss and so ischemic colitis seems less likely as does infectious colitis as this was abrupt onset. Hemorrhoidal bleeding is in the differential as well especially given the low level of blood loss noted with hematocrit only dropping to 33%. We will proceed with colonoscopy tomorrow to determine the source of the blood loss. Risks of the procedure include but are not limited to: Bleeding, infection, perforation, cardiac and pulmonary compromise. Further recommendations post colonoscopy to occur tomorrow. MiraLAX prep tonight. 06/06/16--I was called by Dr. Domínguez last night to inform you the patient was throwing up her prep. Despite writing for IV Phenergan and the patient having Zofran and being offered NG tube through the night on multiple occasions the patient did not take any further prep aside from a few sips. Understandably, she is not clean this morning. I have canceled the colonoscopy. I am attempting to get the records of the previous colonoscopy from [facility] and we will obtain a tagged red blood cell scan this morning. If actively bleeding the tagged red blood cell scan will give us an idea of where the blood is coming from, if not actively bleeding the tagged red blood cell scan should indicate that the patient's bleeding has ceased at which point she could probably be fed provided she is not going to try and take the prep. I had the distinct impression the information we get from this test is going to be the only information we get from this hospital stay. We need to establish that her hematocrit has not dropped further --once this information is available, if she has stopped bleeding she could likely be discharged. 06/07/16--The source of the GI bleed became apparent on colonoscopy--> this was caused by a localized area of ischemia located at 72 cm, possibly associated with a diverticulum but with a deep ulcerated area that appeared to have had some recent bleeding, this area was biopsied. There was another AVM noted in the sigmoid that was incidentally picked up and burned with a hot biopsy forceps as well. Moderate sized internal hemorrhoids were noted on retroflex, no polyps were noted or cancer. The terminal ileum also appeared normal without blood refluxing from further up in the colon. The patient did not have any active bleeding and should do fine upon discharge. I am writing her for an appropriate diet. She can be discharged today in my opinion. 06/08/16--After the colonoscopy was complete the patient had a single bloody bowel movements but over the course of the evening time patient has had 2 more that have been quite voluminous by report. She was not significantly bleeding at the time we did the colonoscopy but a few biopsies were done and several polyps were removed. I suspect that she may be bleeding from the same area of ischemia located at 72 cm in the proximal descending colon, Dr. Chaidez will be evaluating the tagged red blood cell scan that we have ordered at this time. If there is a brisk enough bleeding point seen the patient may benefit from arteriography. Otherwise continue observation is suggested. Ultimately if bleeding cannot be controlled by endoscopic or radiographic means the patient may require a left hemicolectomy. Surgery has not been consulted. 06/09/16--stool appears to be doing much better at this point with less blood. The bleeding is not gone away completely but the patient is still on a full liquid diet and will advance this at this point to more solid diet. Tagged red blood cell scan was negative. Biopsies from the colon are still pending at this time. 06/10/16--the patient continues to have bleeding at this point and has just been given her fourth unit of packed options include observation to allow time to heal versus interventional radiology and embolization which has not worked up to this point as she has never bled enough to see on tagged red blood cell scan versus surgery which would certainly be the most aggressive option and probably least desirable. Unfortunately I think we are led to the point where we need to support her until appropriate healing can occur. 06/11/16--Localized ischemic colitis in the colon, patient states that she is not having any further bleeding and is eating well. Hematocrit posttransfusion is up to 32%. We are in a state of watchful waiting. No further recommendations. If bleeding continues can consider surgery however this will be a last resort. See previous notes. 06/12/16--Nursing staff indicates that the patient is having some ongoing burgundy stools (that I was hoping to flush out using MiraLAX) but also some bright red blood per rectum. Stools not witnessed by me and the hematocrit appears to be stable dropping slightly from 32.1% to 31.7%. I will arrange for a repeat tagged red blood cell scan with delayed imaging to see if a secondary source can be discovered. Ongoing bleeding is concerning. 06/13/16--Nursing staff and the patient/family verify ongoing bleeding with a drop in the patient's hematocrit from the previous 32.1% now all the way down to 25.8% again. Tagged red blood cell scan ordered for yesterday morning with a delayed film done 9 hours later both of which failed to show a bleeding source. At this point our choices are basically 3, as I have related to the family: We can wait a longer period of time hoping this will stop on its own, repeat colonoscopy with potential clipping of the localized ischemic area if a visible vessel is seen, or proceed with segmental colonic resection probably using a left hemicolectomy in order to remove this ischemic area. After discussion with the patient's daughter and Frank (the patient's son), the patient wants to proceed with repeat colonoscopy tomorrow. Unfortunately I will be on vacation and Dr. Barba will have to do this procedure. I will have the patient transfused another 2 units of blood today. If this bleeding segment has extended and is not able to undergo endoscopic therapy I advised proceeding with surgery which should be easier if the colon was completely cleaned out. Current Visit: Yes (2) Acute posthemorrhagic anemia Status: Acute Assessment and plan: Again, this patient's hematocrit is only dropped down to 33%. I suspect it is equilibrating at this point. She does take an aspirin a day and so a brisk upper GI bleed is in the differential however given her initial stools seen as bright red this seems much less likely. We will look through the patient's colon and into the terminal ileum which should determine whether or not there is blood loss he seen from higher in the GI tract. Clear liquid diet today in preparation for the colonoscopy tomorrow, we will continue to follow the patient 's hematocrit over time. 06/06/16--No further blood counts had been drawn yesterday, I have written for these to be done every 12 hours for the remainder of her hospital stay. Note that the patient's daughter is trying to get the patient out by Friday in order to attend a "surprise birthday green party". If the tagged red blood cell scan is positive for bleeding we may have to press harder to get the NG tube and get the prep down. 06/07/16--Tagged red blood cell scan was negative yesterday but the creatinine dropped so her family we elected to do the colonoscopy today which did demonstrate a area of localized ischemic colitis in the proximal descending colon that was biopsied. A single sigmoid AVM was noted as well, the patient can be discharged today in my opinion once her blood is completed. She is not actively bleeding now. 06/08/16--The patient had a brief improvement in her hematocrit but has since dropped her blood counts down. Yesterday at 8 AM hematocrit was 34.6% dropping down to 22.9% at midnight and at 4:00 this morning was down to 22.1%. She has been getting another 2 units of blood which is being transfused at this time. 06/09/16--Hematocrit is stable at 26-27% and we will continue to observe the patient at this point. She may be able to go home tomorrow she is stable. I will advance her diet at this time to see how she does with solids. 06/10/16--The patient has dropped her hematocrit from 25% to 23% and back up to 25% again post another unit of blood. Dr. Domínguez will be giving her some more blood tonight, will continue to observe the patient on MiraLAX 3 times daily to help flush out the blood that is coming from higher in the GI tract. Discussed the case extensively with family member in the room and with the patient herself. They appear to be having difficulty understanding the concepts involved with ischemic colitis. 06/11/16--the hematocrit is up to 32%. Patient feels well. Eating. No further bleeding as per the patient but she has fairly severe dementia. Discharge as per Dr. Domínguez when she feels this is appropriate. 06/12/16--As noted above. Eating and having bowel movements. Fairly severe dementia, nursing input to observe stools is helpful. 06/13/16--As mentioned above. Current Visit: Yes Gastroenterology - PN: Subj Interval history: Patient continues to pass blood per rectum although this is a scant amount. Her hematocrit over the last 2 days has dropped from 32.1% to 25.8% and she has required total of 6 units through her hospital stay, she is likely to get 2 more units today. She does not have any abdominal pain she is eating adequately although feels full quite frequently. Tagged red blood cell scan including delayed films yesterday negative for bleeding source. Previous colonoscopy demonstrated an area of localized ischemic colitis at about the level of the hepatic flexure thought to be the source of the slow bleed. Exam (Progress Note) - Constitutional Vitals: Period Temp Pulse Resp BP Sys/Mosher Pulse Ox Last 24 Hr 98.4 F-98.6 F 64-70 18-20 117-136/64-73 93-98 General appearance: no acute distress - Eye Eye exam: Present: EOMI - Respiratory Respiratory exam: Present: clear to auscultation bilaterally. Absent: rhonchi, stridor, wheezes - Cardiovascular Cardiovascular exam: Present: regular rate and rhythm - GI/Abdominal GI/Abdominal exam: Present: normal bowel sounds, soft. Absent: distended, tenderness, rebound - Neurological Exam Neurological exam: Present: alert, oriented X3, altered (Mild dementia with some confusion) - Psychiatric Psychiatric exam: Present: normal affect, normal mood, other (Mild dementia with some confusion) - Skin Skin exam: Present: warm Results - Labs CBC & BMP: 06/13/16 04:41 06/13/16 04:40
[2016-06-13] MEDS ORDERED: SODIUM CHLORIDE 0.9% 250 ML IV PRN (08:41)
[2016-06-13] MEDS ORDERED: FUROSEMIDE 20 MG/2 ML VIAL IV PRN (08:41)
[2016-06-13] MEDS: PANTOPRAZOLE 40 MG TABLET PO SCH (09:18)
[2016-06-13] MEDS: CIPROFLOXACIN 500 MG TABLET PO SCH (09:19)
[2016-06-13] MEDS: FENOFIBRATE 145 MG TABLET PO SCH (09:20)
[2016-06-13] MEDS: ALLOPURINOL 100 MG TABLET PO SCH (09:20)
[2016-06-13] MEDS: metroNIDAZOLE 500 MG TABLET PO SCH ×2 (09:20→15:24)
[2016-06-13] MEDS: METOPROLOL SUCCINATE XL 100 MG TABLET PO SCH (09:20)
[2016-06-13] MEDS: POTASSIUM CHLORIDE 20 MEQ PACK PO SCH (09:21)
[2016-06-13] MEDS: amLODIPine 5 MG TABLET PO SCH (09:21)
[2016-06-13] MEDS: BISACODYL 5 MG TABLET PO SCH ×2 (09:21→18:05)
[2016-06-13 17:11] LABS: Hematocrit 31.6 VOL% (35.7-47.0)
[2016-06-13 17:12] LABS: Hemoglobin 10.4 GM/DL (12.0-16.0)
--- NOTE | 2016-06-13 17:40 | Discharge Summary ---
Hospital Course - Hospital Course Hospital Course: Ms. Rodney is a 80 year old female with history of stroke/TIA, HTN, chronic renal insufficiency, OA, dyslipidemia, gout, diverticulosis/diverticulitis with episode years ago, who presented to ER with acute GI bleed. She denies pain. Dr. Urbina has been consulted to further investigate. Also, CT revealed an incidental finding of large renal cysts with mass like effect. Consulting Dr. Ko Smith to evaluate severity and whether she needs surgical therapy. Discussed with daughter. Today, , discussed with Dr. Ko Smith that the renal cysts are simple cysts, and observation is recommended rather than procedure. She does not have hydronephrosis from mass effect. Friday, was going to discharge her but she had another bloody stool. Discussed with family that she needs to stay until bloody stools resolve. Spoke with Dr. Urbina. Will keep her here and add antibiotic coverage for ischemic colitis, full liquid diet. Possible diverticular bleed. However, diverticula not seen on colonoscopy. Area of ischemic colitis/ulceration noted on colonoscopy. This week: Anemia improved with blood transfusion. However, she required multiple units pRBC transfused over the course of her hospital stay, and held off discharge until H&H more stable. Discussed with daughter, and she wants patient transferred to [place] for second opinion about whether surgery is the next step for her. Also, family in [place] and patient will be more comfortable. Discharge today after 2 units pRBC transfused. Diagnosis - Discharge Diagnosis (1) Lower gastrointestinal hemorrhage Status: Acute (2) Hypertension Status: Chronic (3) Blood loss anemia Status: Acute (4) Ischemic colitis Status: Acute Discharge Plan - Discharge Data Disposition: Disch/Xfer-[facility] Term Hos Condition at Discharge: Stable Discharge Diet: other (soft diet) Activity: increase activity as tolerated - Discharge Medications New Acetaminophen Tab [Tylenol Tab] 650 mg PO Q6H PRN #0 tablet PRN Reason: Fever > 100.4 Or Headache Potassium Chloride Packet 20 meq PO DAILY Bisacodyl Tab [Dulcolax Tab] 15 mg PO Q8H tablet Ciprofloxacin Tab [Cipro Tab] 500 mg PO Q12HR tablet Ondansetron Inj [Zofran Inj] 4 mg IV Q6H PRN #0 vial PRN Reason: Nausea/Vomiting Pantoprazole Tab [Protonix Tab] 40 mg PO DAILY tablet metroNIDAZOLE TAB [Flagyl Cap/Tab] 500 mg PO TID tablet Continue Fenofibrate [Tricor] 145 mg PO DAILY Amlodipine Besylate 5 mg PO DAILY Allopurinol 300 mg PO DAILY Pravastatin [Pravachol] 20 mg PO BEDTIME Metoprolol Succinate 100 mg PO DAILY Discontinued Aspirin [Ecotrin] 325 mg PO DAILY - Follow Up or Referral Follow Up: Chiquis Domínguez DO [Physician] - - Forms/Instructions Additional Discharge Instructions: Follow up with Dr. Freddie Domínguez in clinic after workup/treatment in [place] complete. Exam - Constitutional Vitals: Period Temp Pulse Resp BP Sys/Mosher Pulse Ox Last 24 Hr 98.1 F-99.1 F 54-70 16-20 110-141/62-75 93-100 Exam: General appearance: no acute distress - Respiratory Respiratory exam: Present: clear to auscultation bilaterally - Cardiovascular Cardiovascular exam: Present: regular rate and rhythm - Extremities Exam Extremities exam: Absent: edema - Neurological Exam Neurological exam: Present: alert - Psychiatric Psychiatric exam: Present: normal mood - Skin Skin exam: Present: warm, dry Vitals reviewed. Discharge Results Procedures and tests throughout hospitalization: Pending Orders 06/14/16 04:00 Basic Metabolic Panel IN AM Comp Blood Count Auto Diff IN AM Labs on day of discharge: Labs from last 24 hours 06/13/16 06/13/16 06/13/16 16:59 04:41 04:40 WBC 9.0 RBC 2.83 L Hgb 10.4 L D 8.3 L Hct 31.6 L 25.8 L MCV 91.2 MCH 29 MCHC 32.2 RDW 16.5 Plt Count 195 MPV 11.8 Neut % (Auto) 75.7 H Lymph % (Auto) 12.3 L Sully % (Auto) 8.0 Eos % (Auto) 2.6 Baso % (Auto) 0.4 Neut # (Auto) 6.8 Lymph # (Auto) 1.1 L Sully # (Auto) 0.7 Eos # (Auto) 0.2 Baso # (Auto) 0.0 Immature Gran % 1.0 Nucleated RBC % 0.0 Immature Gran # 0.09 Nucleated RBCs # 0.00 Sodium 149 H Potassium 3.8 Chloride 115 H Carbon Dioxide 26 Anion Gap 11.8 BUN 25 H Creatinine 1.60 H GFR Calculation 38 BUN/Creatinine Ratio 15.00 Glucose 107 H Calculated Osmolality 299.1 Calcium 8.1 L Blood Type Antibody Screen Crossmatch 06/13/16 06/10/16 04:37 05:40 WBC RBC Hgb Hct MCV MCH MCHC RDW Plt Count MPV Neut % (Auto) Lymph % (Auto) Sully % (Auto) Eos % (Auto) Baso % (Auto) Neut # (Auto) Lymph # (Auto) Sully # (Auto) Eos # (Auto) Baso # (Auto) Immature Gran % Nucleated RBC % Immature Gran # Nucleated RBCs # Sodium Potassium Chloride Carbon Dioxide Anion Gap BUN Creatinine GFR Calculation BUN/Creatinine Ratio Glucose Calculated Osmolality Calcium Blood Type O POSITIVE Antibody Screen Negative Crossmatch See Detail See Detail DS: Provider Date of admission: 06/04/16 19:08 Primary care physician: . No PCP Attending physician on admission: Chiquis Domínguez DO Consults: 06/04/16 21:12 Consult to Case Mgmt/Social Srvs [CONS] Routine Reason for Case Mgmt/Social Srvs: Discharge Planning Consult to Physician [CONS] Routine Comment: GI bleed Consulting Provider: Jameson Urbina When should Consulting Provider be notified: In am Person Notified: raza Date Notified: 06/05/16 Time Notified: 07:26 06/04/16 21:16 Consult to Pharmacy [CONS] Routine Reason for Pharmacy Consult: Adjust Meds Renal Funct 06/05/16 22:07 Consult to Physician [CONS] Routine Comment: large renal cysts with masslike effect Consulting Provider: Tomas Smith Person Notified: NEO Date Notified: 06/06/16 Time Notified: 08:08 Discharging clinician: Chiquis Domínguez DO Expected date of discharge: 06/13/16
[2016-06-13] MEDS ORDERED: POLYETHYLENE GLYCOL 3350/ELECTROLYTES 4,000 ML BOTTLE NG ONE (18:00)
[2016-06-14 02:15] VITALS: BP 127/63
== END 2016-06-13 19:30 | disposition hospice, home (50) | DRG 394 ==
LOC: N.ED 17:03 → N.EDINP 19:08 → N.2E 20:20
PROVIDERS: ADMIT Internal Medicine; ATTEND Internal Medicine
PROC: COLONBX (2016-06-07 09:05)